=== PATIENT | male | born 1935 | race Caucasian/White ===

== ENCOUNTER → 2016-12-16 | Outpatient (CLI) | payer MEDICARE ==
[2016-12-16 13:44] LABS: ALBUMIN/GLOBULIN RATIO 1.3 (1.0-2.2); BILIRUBIN,TOTAL 0.7 mg/dL (0.2-1.0); BUN - BLOOD UREA NITROGEN 29 mg/dL (6-20); CALCIUM 9.1 mg/dL (8.5-10.3); CARBON DIOXIDE - CO2 27 mmol/L (21-32); CHLORIDE 105 mmol/L (101-111); CHOL/HDL RATIO 2.6 (<5.0); CHOLESTEROL 231 mg/dL; GFR - MDRD 72 (>89); GLUCOSE 96 mg/dL (70-100); HDL CHOLESTEROL 88 mg/dL; LDL/HDL RATIO 1.5 (<3.6); POTASSIUM 4.3 mmol/L (3.5-5.0); SODIUM 140 mmol/L (135-145); TOTAL PROTEIN 6.9 g/dL (6.7-8.2); TRIGLYCERIDES 52 mg/dL; VLDL CHOLESTEROL 10 mg/dL
== END ==
LOC: LAB.R 14:00
PROVIDERS: ATTEND Internal Medicine
DX: Z12.5 Encounter for screening for malignant neoplasm of prostate (principal); E78.5 Hyperlipidemia, unspecified; Z79.899 Other long term (current) drug therapy
CPT/HCPCS: 80053; 80061; 82550; G0103; 84153

== ENCOUNTER 2017-02-17 09:23 | Outpatient (CLI) | payer MEDICARE ==
[2017-02-17 16:14] LABS: CHOL/HDL RATIO 3.4 (<5.0); CHOLESTEROL 279 mg/dL; HDL CHOLESTEROL 81 mg/dL; LDL/HDL RATIO 2.3 (<3.6); TRIGLYCERIDES 70 mg/dL; VLDL CHOLESTEROL 14 mg/dL
[2017-02-17 16:20] LABS: PSA FREE 0.54 ng/mL (0.16-2.81)
[2017-02-17 16:21] LABS: PSA TOTAL 1.58 ng/mL (0.000-2.000)
== END 2017-02-17 09:24 | disposition home or self-care (01) ==
LOC: LAB.R 09:23
PROVIDERS: ATTEND Internal Medicine
DX: R97.20 Elevated prostate specific antigen [PSA] (principal); Z87.898 Personal history of other specified conditions; E78.5 Hyperlipidemia, unspecified
CPT/HCPCS: 80061; 82550; 84154

== ENCOUNTER 2017-04-01 11:23 | Inpatient (IN) | payer MEDICARE ==
--- NOTE | 2017-04-01 11:55 | ED Physician Documentation ---
PD HPI FOCAL NEURO - Stated complaint Stated Complaint: R SIDE NUMBNESS/DIZZY - Chief complaint Chief Complaint: Neuro - History obtained from History obtained from: Patient - History of Present Illness Timing - onset: Last night Timing - details: Still present (worse this morning about 10 am), Waxing and waning Severity of deficit: Moderate (noted numbness feeling right arm and leg, Somewhat on the face as well last evening and earlier this morning. His also thought that he was having trouble with thought process. He had onset of the symptoms yesterday evening and last night. He was not sure if the numbness was still there when he first awoke this morning but noted it particularly around 10 AM. However his said he was having troubles with thought process right when he was awake this morning. There is no weakness noted. He was slightly off balance walking. He denied any headache or head injury.) Weakness: No: Face, Arm, Hand, Leg, Foot, Right, Left, Other Numbness: Face, Arm, Leg, Right Associated symptoms: No: Headache, Nausea / vomiting, Seizure, Syncope, Head injury, Chest pain Contributing factors: negative: Anticoagulated, Atrial fibrillation Baseline status: positive: A&OX3, ambulatory, indep (he was actually out doing yard work yesterday, without injury. He felt that he was well hydrated through the day.) Recently seen: Not recently seen Review of Systems Constitutional: denies: Fever, Chills Eyes: denies: Loss of vision, Decreased vision Ears: denies: Loss of hearing, Tinnitus/ringing Nose: denies: Rhinorrhea / runny nose, Congestion Throat: denies: Sore throat Cardiac: denies: Chest pain / pressure, Palpitations Respiratory: denies: Dyspnea GI: denies: Abdominal Pain, Abdominal Swelling, Nausea, Vomiting, Diarrhea, Bloody / black stool : denies: Dysuria, Frequency Skin: denies: Rash, Lesions Neurologic: reports: Numbness. denies: Generalized weakness, Focal weakness, Headache, Head injury Psychiatric: denies: Depressed, Insomnia Endocrine: denies: Easy bruising / bleeding Immunocompromised: denies: Immunocompromised PD PAST MEDICAL HISTORY - Past Medical History Past Medical History: No Cardiovascular: High cholesterol - Past Surgical History Past Surgical History: Yes Derm: Skin cancer surgery - Present Medications Home Medications: Ambulatory Orders Medication Instructions Recorded Confirmed Aspirin 81 mg PO DAILY 04/01/17 04/01/17 Multivitamin [Theragran] 1 tab PO DAILY 04/01/17 04/01/17 - Allergies Allergies/Adverse Reactions: Allergies Allergy/AdvReac Type Severity Reaction Status Date / Time No Known Drug Allergies Allergy Verified 04/01/17 11:38 - Living Situation Living Situation: reports: With spouse/s.o. Living Arrangement: reports: At home - Social History Does the pt smoke?: No Smoking Status: Never smoker Does the pt drink ETOH?: Yes Does the pt have substance abuse?: No - Family History Family history: reports: Non contributory - Immunizations Immunizations are current?: Yes - POLST Patient has POLST: No PD ED PE NORMAL - Vitals Vital signs reviewed: Yes - General General: Alert and oriented X 3, Well developed/nourished, Other (slightly slow processing answers, but content of answers is good. ) - HEENT HEENT: Atraumatic, PERRL, EOMI, Ears normal, Moist mucous membranes, Pharynx benign - Neck Neck: Supple, no meningeal sign, No adenopathy - Cardiac Cardiac: RRR, No murmur - Respiratory Respiratory: Clear bilaterally - Abdomen Abdomen: Soft, Non tender - Male Male : Deferred - Rectal Rectal: Deferred - Back Back: No CVA TTP - Derm Derm: Normal color, Warm and dry, No rash - Extremities Extremities: No deformity, No tenderness to palpate, Normal ROM s pain, No edema , No calf tenderness / cord - Neuro Neuro: Alert and oriented X 3, pigeon fancier 2-12 intact, No motor deficit, Other (some decreased sensation right arm and leg to touch. He is able to talk coherently and content is correct/appropriate but the process is slow. For the NIHSS, he did well with the visual naming and the picture, but could not read the words nor sentences, tried to spell them and then could not do that either. ) Eye Opening: Spontaneous Motor: Obeys Commands Verbal: Oriented GCS Score: 15 - Psych Psych: Normal mood, Normal affect NIHSS - Level of Consciousness Level of consciousness: (0) Alert, Keenly responsive LOC Questions: (0) Answers both Q's correct LOC Commands: (0) Performs both correctly - Gaze Best Gaze: (0) Normal - Visual Visual: (0) No loss - Facial Palsy Facial Palsy: (0) Normal, symmetrical movement - Motor Arms (both separate) Motor Arm (right): (1) Drift Motor Arm (left): (0) No drift - Motor Legs (both separate) Motor Leg (right): (0) No drift Motor Leg (left): (0) No drift - Limb Ataxia Limb Ataxia: (0) Absent - Sensory Sensory: (1) Zozl-wo-cdhotkfl loss - Best Language Best Language: (1) zekl-rn-[id number] - Dysarthria Dysarthria: (0) Normal - Extinction and Inattention (formally neg Extinction and inattention: (0) No abnormality - Total Score/Results Total Score/Result: 3 Results - Vitals Vitals: Vital Signs - 24 hr 04/01/17 04/01/17 04/01/17 11:34 12:59 14:13 Temperature 36.2 C L 36.7 C Heart Rate 72 66 63 Respiratory 16 15 15 Rate Blood Pressure 157/79 H 141/88 H 138/78 H O2 Saturation 98 98 97 Oxygen O2 Source Room air - Labs Labs: Laboratory Tests 04/01/17 04/01/17 04/01/17 11:36 13:37 13:37 WBC 4.9 RBC 4.44 L Hgb 13.5 L Hct 40.4 L MCV 90.9 MCH 30.4 MCHC 33.4 RDW 13.4 Plt Count 174 MPV 9.3 Neut # 3.4 Lymph # 1.0 L [place] # 0.4 Eos # 0.1 Baso # 0.0 Absolute Nucleated RBC 0.00 Nucleated RBC % 0.0 Sodium 137 Potassium 4.2 Chloride 110 Carbon Dioxide 21 Anion Gap 6.0 BUN 20 Creatinine 0.9 Estimated GFR (MDRD) 81 L Glucose 98 POC Whole Bld Glucose 126 H Calcium 8.8 Total Bilirubin 0.6 AST 25 ALT 21 Alkaline Phosphatase 60 Total Protein 6.0 L Albumin 3.6 Globulin 2.4 Albumin/Globulin Ratio 1.5 Lipase 37 - Rads (name of study) head CT Radiology: Prelim report reviewed (no acute process) head and neck angio Radiology: Prelim report reviewed (posterior occlusion with collateral flow, presume nonacute. No other acute process. ) PD MEDICAL DECISION MAKING - ED course Complexity details: reviewed results, re-evaluated patient (Symptoms are about the same. He was given IV fluids for hydration. He did feel that he hydrated well through the yard work yesterday. There is no injury. His symptoms sound suggestive of a CVA. He was given additional aspirin after his CT did not show any bleeding. The patient to get an angiogram which did not show an obvious new defect. The posterior occlusion with collateral flow sounds to be older and would not correlate with his area of symptoms for language and unilateral numbness. The patient will be admitted to the hospital for further workup and evaluation as well as OT and PT evaluations.), considered differential, d/w patient, d/w organizational research consultant ([facility] - who felt symptoms low enough and timing not clear (may be from last evening) that TPA would not be beneficial enough to balance potential harm. I talked with patient/ about this thought process as well. ), other (Talked with Dr. Tijerina, Hospitalist) Departure - Departure Disposition: [facility] DC/Xfer Clinical Impression: Numbness on right side, Receptive aphasia, Stroke-like symptoms Condition: Stable Record reviewed to determine appropriate education?: Yes
--- NOTE | 2017-04-01 12:21 | CT Preliminary Report ---
Exam: CT HEAD W/O IMPRESSION: No CT evidence for acute intracranial abnormality. [facility] SITE ID: [id number]
--- NOTE | 2017-04-01 12:24 | CT Report ---
EXAM: CT HEAD EXAM DATE: 04/01/2017 11:58 AM. CLINICAL HISTORY: Right side numbness. Also reported right-sided weakness. COMPARISON: None. TECHNIQUE: Multiaxial CT images were obtained from the foramen magnum to the vertex. Reformats: Coron al. IV contrast: None. In accordance with CT protocol optimization, one or more of the following dose reduction techniques w ere utilized for this exam: automated exposure control, adjustment of mA and/or KV based on patient s ize, or use of iterative reconstructive technique. FINDINGS: Mild diffuse atrophy. No evidence for acute hemorrhage or stroke. Nonspecific ventriculomegaly, more likely chronic than acute. No midline shift or abnormal subdural fluid collection. Mild paranasal sinus mucosal thickening. Intact calvarium. IMPRESSION: No CT evidence for acute intracranial abnormality. [facility] Referring Provider Line: [phone] SITE ID: [id number]
[2017-04-01] MEDS ORDERED: SODIUM CHLORIDE 0.9% 1,000 ML IV ONE (12:25)
--- NOTE | 2017-04-01 12:27 | CT Preliminary Report ---
Exam: CT NECK ANGIO Neck CT angiogram IMPRESSION: No acute abnormality or significant stenosis of the cervical vertebral carotid arteries. [facility] SITE ID: [id number]
--- NOTE | 2017-04-01 12:30 | CT Report ---
EXAM: CT ANGIOGRAM NECK EXAM DATE: 04/01/2017 11:49 AM. CLINICAL HISTORY: Report of right-sided weakness and numbness. COMPARISON: None. TECHNIQUE: Routine axial helical imaging was performed from the skull base through the aortic arch. I V Contrast: 100 mL Isovue-300. Reconstructions: Routine multiplanar 3D MIP reconstructions. Evaluatio n of arterial stenosis is based on a NASCET method of measurement. In accordance with CT protocol optimization, one or more of the following dose reduction techniques w ere utilized for this exam: automated exposure control, adjustment of mA and/or KV based on patient s ize, or use of iterative reconstructive technique. FINDINGS: The top of the aortic arch and the origins of the great vessels are patent. No acute abnormality or f ocal flow limiting stenosis of the cervical vertebral or carotid arteries. No significant-appearing a therosclerotic changes at the cervical carotid bifurcations. Incidental left cervical ICA tortuosity. Dqwq-od-unolwjpl chronic-appearing multilevel degenerative cervical spinal spondylosis. No acute apic al pulmonary parenchymal disease. IMPRESSION: No acute abnormality or significant stenosis of the cervical vertebral carotid arteries. [facility] Referring Provider Line: [phone] SITE ID: [id number]
[2017-04-01] MEDS ORDERED: ASPIRIN CHEW 81 MG TABLET PO STA (12:41)
--- NOTE | 2017-04-01 12:48 | CT Preliminary Report ---
Exam: CT HEAD ANGIO Impression: Proximal left GLOVE PARTS INSPECTOR P2 segment occlusion. No other evidence for proximal intracranial large artery flow-limiting stenosis or occlusion. [facility] SITE ID: [id number]
[2017-04-01] MEDS ORDERED: IOPAMIDOL-300 100 ML VIAL IVP ONE (12:55)
[2017-04-01] MEDS ORDERED: IOPAMIDOL-300 100 ML VIAL ONE (12:58)
[2017-04-01] MEDS ORDERED: ASPIRIN CHEW 81 MG TABLET ONE (12:59)
--- NOTE | 2017-04-01 13:27 | CT Report ---
EXAM: CT ANGIOGRAM HEAD. CT SCAN OF THE HEAD WITH CONTRAST. EXAM DATE: 04/01/2017 12:13 PM CLINICAL HISTORY: Right side weakness and numbness. COMPARISON: No prior CTA. TECHNIQUE: 1. Using a multidetector scanner, axial images were acquired from the foramen magnum to the skull santino amilcar prior to and following contrast administration. 2. Using a multidetector scanner, high-resolution axial images were acquired from the skull base thro ugh vertex following rapid infusion of intravenous contrast. Reformats: Multiplanar MIP reformats wer e reconstructed. Nascet criteria used for stenosis measurement. IV Contrast: 100 cc Isovue-300. In accordance with CT protocol optimization, one or more of the following dose reduction techniques w ere utilized for this exam: automated exposure control, adjustment of mA and/or KV based on patient s ize, or use of iterative reconstructive technique. FINDINGS: No abnormal brain enhancement. No evidence for intracranial enhancing space-occupying mass. Focal chronic atherosclerotic calcifications of the proximal right intradural vertebral artery. No as sociated flow limiting arterial luminal stenosis. Mild atherosclerotic calcifications of the cavernous and paraclinoid segments of both internal caroti d arteries. Abrupt cut off of the proximal left INDUSTRIAL ENGINEERING ANALYST P2 segment. Occlusion is age indeterminate. Correlate clinica lly with signs and/or symptoms of left INDUSTRIAL ENGINEERING ANALYST vascular insufficiency. Note that contrast opacified more peripheral branch arteries are contrast opacified in the more distal left INDUSTRIAL ENGINEERING ANALYST territory including the inferior temporal lobe and medial left occipital lobe suggesting some degree of collateral flow. Minimal to mild segmental stenosis of the proximal right INDUSTRIAL ENGINEERING ANALYST, this does not appear flow-limiting. No proximal flow limiting stenosis or occlusion of the central segments of the anterior or middle cer ebral arteries. No as[place] of [place] aneurysm. Contrast opacification of the major dural venous sinuses is present as expected. IMPRESSION: Proximal left INDUSTRIAL ENGINEERING ANALYST P2 segment occlusion. No other evidence for proximal intracranial large artery flow-limiting stenosis or occlusion. Findings discussed by telephone with Dr. Mcneill at 12:45 PM 04/01/2017. [facility] Referring Provider Line: [phone] SITE ID: [id number]
[2017-04-01 13:58] LABS: BASOPHILS % (AUTO) 0.9 %; EOSINOPHILS # (AUTO) 0.1 10^3/uL (0.0-0.7); HCT - HEMATOCRIT 40.4 % (42.0-52.0); HGB - HEMOGLOBIN 13.5 g/dL (14.0-18.0); LYMPHOCYTES % (AUTO) 20.5 %; MEAN CORPUSCULAR HEMOGLOBIN 30.4 pg (27.0-31.0); MEAN CORPUSCULAR HGB CONC 33.4 g/dL (32.0-36.0); MEAN CORPUSCULAR VOLUME 90.9 fL (80.0-94.0); MEAN PLATELET VOLUME 9.3 fL (7.4-11.4); MONOCYTES # (AUTO) 0.4 10^3/uL (0.0-1.0); MONOCYTES % (AUTO) 7.4 %; NEUTROPHILS # (AUTO) 3.4 10^3/uL (1.5-6.6); NEUTROPHILS % (AUTO) 69.2 %; RED BLOOD COUNT 4.44 10^6/uL (4.70-6.10); RED CELL DISTRIBUTION WIDTH 13.4 % (12.0-15.0); UNCORRECTED WHITE BLOOD COUNT 4.9 x10^3/uL; WHITE BLOOD COUNT 4.9 x10^3/uL (4.8-10.8)
[2017-04-01 14:04] LABS: ALBUMIN/GLOBULIN RATIO 1.5 (1.0-2.2); BILIRUBIN,TOTAL 0.6 mg/dL (0.2-1.0); CALCIUM 8.8 mg/dL (8.5-10.3); CREATININE 0.9 mg/dL (0.6-1.2); POTASSIUM 4.2 mmol/L (3.5-5.0)
[2017-04-01] MEDS ORDERED: ONDANSETRON 4 MG/2 ML VIAL IVP PRN (14:32)
[2017-04-01] MEDS ORDERED: SODIUM CHLORIDE FLUSH 0.9% 10 ML SYRINGE IVP PRN (14:32)
[2017-04-01] MEDS ORDERED: ACETAMINOPHEN 325 MG TABLET PO PRN (14:32)
[2017-04-01 15:42] LABS: BILIRUBIN,URINE NEGATIVE (NEGATIVE); PH,URINE 7.5 PH (5.0-7.5)
[2017-04-01 15:44] LABS: UA CHARGE (STRIP ONLY) YES; UR CULTURE IF IND NOT INDICATED
--- NOTE | 2017-04-01 16:34 | MRI Preliminary Report ---
Exam: MRI BRAIN W/O Impressions: 1. Subacute patchy left SENIOR QC TECHNICIAN territory ischemic stroke. No hemorrhage or mass effect. 2. Moderate generalized cortical atrophy with marked compensatory ventricular enlargement. Moderate m idbrain atrophy. No significant white matter disease present. Critical result: Findings discussed immediately with nurse practitioner Capone by phone on 2016 at 1632 hrs. [facility] SITE ID: [id number]
--- NOTE | 2017-04-01 16:37 | MRI Report ---
EXAM: MRI BRAIN WITHOUT CONTRAST EXAM DATE: 04/01/2017 04:07 PM. CLINICAL HISTORY: Right-sided weakness. Evaluate for stroke. COMPARISON: Prior CT head, CT angiogram head and neck performed earlier today at 1149 hrs.. TECHNIQUE: Multiplanar, multisequence T1-weighted and fluid-sensitive MR sequences of the brain were performed. Sequences optimized for routine evaluation. Other: None. IV Contrast: None. Findings: Relevant images are indicated (image number, series number). Patchy, incomplete diffusion restriction present left JUVENILE JUSTICE OFFICER territory, corresponding low signal ADC. Th is includes left hippocampus, left occipital pole. There is corresponding increased signal present se en on axial FLAIR. There is no hemorrhage or mass effect. Remaining brain demonstrates no acute or subacute ischemic change. Basal cisterns, bilateral IACs, bilateral Meckel's caves are clear. Orbital contents negative. There are normal expected vascular flow voids of the major arteries and veins. As seen earlier, again seen prominent enlargement of the lateral ventricles, atria. Prominent generalized atrophy of the brain pr esent. No significant superimposed white matter disease. Empty sella. Punctate old ischemic disease present posterior central blaine. Moderate midbrain atrophy. Craniocervical junction, limited evaluation upper cervical cord negative. Impressions: 1. Subacute patchy left JUVENILE JUSTICE OFFICER territory ischemic stroke. No hemorrhage or mass effect. 2. Moderate generalized cortical atrophy with marked compensatory ventricular enlargement. Moderate m idbrain atrophy. No significant white matter disease present. Critical result: Findings discussed immediately with nurse practitioner Capone by phone on 2016 at 1632 hrs. [facility] Referring Provider Line: [phone] SITE ID: [id number]
--- NOTE | 2017-04-01 16:43 | HISTORY & PHYSICAL EXAMINATION ---
Chief Complaint - Chief Complaint Chief Complaint: slow speech and numbness at right side of body History of Present Illness - Admitted From Admitted From:: ER - History Obtained From History obtained from: pt - History of Present Illness HPI Comment/Other: This is a pleasure 81-year-old male with HLP past medical history, otherwise health, who present ER for evaluation of focal neurological deficit. Pt report on last night about 9pm he began to feel numbness on right side upper and lower extremities, and right face. Then pt though it would go away, and went to sleep. In the today morning, pt still felt right side numbness, and with slower speech than usually and mild gait imbalance. Pt's felt it is unusual then bring pt to ER. Pt still present all these symptoms in the ER. Pt denies headache, any injury, chest pain, SOB, fever, chill, abdominal pain, nausea, vomiting, vision changing. CT of head reveals unremarkable. Lab test is unremarkable as well. pt was admitted for CVA evaluation. History - Past Medical History Cardiovascular: reports: High cholesterol Respiratory: reports: None Neuro: reports: None Endocrine/Autoimmune: reports: None GI: reports: None : reports: None HEENT: reports: None Psych: reports: None Musculoskeletal: reports: None Derm: reports: Other MRSA Hx?: No - Past Surgical History Derm: reports: Skin cancer surgery - Family & Social History Living arrangement: At home Living Situation: With spouse/s.o. - Substance History Use: Uses substance without health or social issues: NONE Abuse: Recurrent use of substance despite neg consequences: NONE - POLST Patient has POLST: No POLST Status: Full Code Meds/Allgy - Home Medications Home Medications: Ambulatory Orders Medication Instructions Recorded Confirmed Aspirin 81 mg PO DAILY 04/01/17 04/01/17 Cholecalciferol (Vitamin D3) 1,000 units PO DAILY 04/01/17 04/01/17 [Vitamin D3] Multivitamin [Theragran] 1 tab PO DAILY 04/01/17 04/01/17 Rosuvastatin Calcium [Crestor] 10 mg PO DAILY 04/01/17 04/01/17 - Allergies Allergies/Adverse Reactions: Allergies Allergy/AdvReac Type Severity Reaction Status Date / Time No Known Drug Allergies Allergy Verified 04/01/17 11:38 Review of Systems - Constitutional Constitutional: denies: Fatigue, Fever, Chills, Malaise - Eyes Eyes: denies: Pain, Irritation, Amaurosis, Blurred vision, Spots in vision, Field loss, Vision loss, Dipolpia - Ears, Nose & Throat Ears, Nose & Throat: denies: Ear pain, Hearing loss, Hearing aids, Tinnitus, Vertigo, Nasal pain, Nasal discharge, Nosebleeds, Nasal obstruction, Postnasal drainage, Dentures, Sore throat, Hoarseness, Bleeding gums - Cardiovascular Cariovascular: denies: Irregular heart rate, Palpitations, Chest pain, Edema, Lightheadedness, Syncope, Exertional dyspnea, Decr. exercise tolerance - Respiratory Respiratory: denies: Cough, Sputum production, Wheezing, Snoring, Hemoptysis, Orthopnea, SOB at rest, SOB with exertion - Gastrointestinal Gastrointestinal: denies: Abdominal pain, Abdominal distention, Constipation, Diarrhea, Change in bowel habits, Rectal bleeding, Black stools, Bloody stools, Nausea, Vomiting, Bile emesis, Alvin blood emesis, Coffee grounds emesis, Reflux /heartburn - Genitourinary Genitourinary: denies: Dysuria, Frequency, Urgency, Hematuria, Incontinence, Flank pain, Nocturia, Urethral discharge - Musculoskeletal Musculoskeletal: denies: Muscle pain, Back pain, Muscle aches, Stiffness, Limited range of motion, Muscle weakness, Gout, Joint pain - Integumentary Integumentary: denies: Rash, Pruritis, Lesions, Dryness, Acne, Pigment changes - Neurological Neurological: reports: Numbness, Abnormal gait, Slurred speech. denies: General weakness, Focal weakness, Headache, Dizziness, Memory problems, Pre- existing deficit, Seizures, Incoordination - Psychiatric Psychiatric: denies: Depression, Anxiety, Suicidal, Delusions, Hallucinations, Homicidal - Endocrine Endocrine: denies: Polyuria, Polydypsia, Polyphagia, Intolerance to cold, Intolerance to heat - Hematologic/Lymphatic Hematologic/Lymphatic: denies: Anemia, Bruising, Petechiae, Blood clots, Lymphadenopathy, Bleeding tendencies, Recurrent infections Exam - Vital Signs Reviewed Vital Signs: Yes Vital Signs: Vital Signs x48h Temp Pulse Resp BP BP Pulse Ox 04/01/17 16:21 37.0 C 16 156/81 H 98 04/01/17 15:20 78 14 139/76 H 96 - Physical Exam General Appearance: positive: No acute distress, Alert. negative: Lethargic Eyes Bilateral: positive: Normal inspection, PERRL, No lid inflammation, Conjunctivae nml ENT: positive: ENT inspection nml, Pharynx nml, No signs of dehydration. negative: Purulent nasal drainage, Pharyngeal erythema, Oral lesions Neck: positive: Nml inspection, Thyroid nml, No JVD, Trachea midline. negative : Thyromegaly, Lymphadenopathy (R), Lymphadenopathy (L), Stiff neck, Carotid bruit, Swelling/bruising, Tracheal deviation Respiratory: positive: Chest non-tender, No respiratory distress, Breath sounds nml. negative: Wheezes, Rales, Rhonchi Cardiovascular: positive: Regular rate & rhythm, No murmur, No gallop. negative : Irregularly irregular, Extrasystoles, Tachycardia, Bradycardia, Systolic murmur, Diastolic murmur Peripheral Pulses: positive: 2+ Abdomen: positive: Non-tender, No organomegaly, Nml bowel sounds, No distention. negative: Tenderness, Guarding, Rebound Back: positive: Nml inspection. negative: CVA tenderness (R), CVA tenderness (L ) Skin: positive: Color nml, No rash, Warm, Dry. negative: Cyanosis, Diaphoresis , Pallor, Skin rash, Decubitus Extremities: positive: Non-tender, Full ROM, Nml appearance. negative: Pedal edema, Joint swelling, Skylar's sign/cords Neurologic/Psychiatric: positive: Oriented x3, Motor nml, Mood/affect nml, Slurred/abnml speech. negative: Sensation nml, Weakness, Sensory loss, Facial droop Conclusion/Plan - Problem List (1) Numbness on right side Conclusion/Plan: pt's symptoms suggest pt may have CVA at left side MRI MRA of brain, and neck ECHO lipid panel PT/OT/ST [place] 325mg daily Lipitor 40 mg daily NPO until evaluated allow SBP until 190 (2) Hyperlipidemia Conclusion/Plan: will check Lipid panel Lipitor 40 mg daily (3) DVT prophylaxis Conclusion/Plan: SCD and Lovenox (4) Full code status Conclusion/Plan: pt request full code status - Lab Results Fish Bones: 04/01/17 13:37 04/01/17 13:37 Issues/Core Measures - Anticipated LOS Anticipated Stay Length: Less than 2 midnights (less than two midnights expected )
[2017-04-01] MEDS: SODIUM CHLORIDE FLUSH 0.9% 10 ML SYRINGE IVP SCH (16:47)
[2017-04-01] MEDS: SODIUM CHLORIDE 0.9% 1,000 ML IV SCH (16:47)
[2017-04-02] MEDS: SODIUM CHLORIDE 0.9% 1,000 ML IV SCH ×2 (04:08→18:28)
[2017-04-02] MEDS: SODIUM CHLORIDE FLUSH 0.9% 10 ML SYRINGE IVP SCH ×3 (05:57→22:18)
[2017-04-02 06:04] LABS: BASOPHILS % (AUTO) 0.5 %; EOSINOPHILS # (AUTO) 0.3 10^3/uL (0.0-0.7); HCT - HEMATOCRIT 40.3 % (42.0-52.0); HGB - HEMOGLOBIN 13.1 g/dL (14.0-18.0); LYMPHOCYTES # (AUTO) 1.7 10^3/uL (1.5-3.5); LYMPHOCYTES % (AUTO) 26.5 %; MEAN CORPUSCULAR HGB CONC 32.6 g/dL (32.0-36.0); MEAN CORPUSCULAR VOLUME 92.1 fL (80.0-94.0); MEAN PLATELET VOLUME 9.3 fL (7.4-11.4); MONOCYTES # (AUTO) 0.5 10^3/uL (0.0-1.0); MONOCYTES % (AUTO) 7.3 %; NEUTROPHILS # (AUTO) 3.9 10^3/uL (1.5-6.6); NEUTROPHILS % (AUTO) 61.7 %; NUCLEATED RED BLOOD CELLS AUTO 0.1 /100WBC; RED BLOOD COUNT 4.38 10^6/uL (4.70-6.10); RED CELL DISTRIBUTION WIDTH 13.4 % (12.0-15.0); UNCORRECTED WHITE BLOOD COUNT 6.4 x10^3/uL; WHITE BLOOD COUNT 6.4 x10^3/uL (4.8-10.8)
[2017-04-02 06:13] LABS: ALBUMIN/GLOBULIN RATIO 1.5 (1.0-2.2); BILIRUBIN,TOTAL 0.9 mg/dL (0.2-1.0); CALCIUM 8.5 mg/dL (8.5-10.3); CREATININE 0.9 mg/dL (0.6-1.2); MAGNESIUM 1.8 mg/dL (1.7-2.8); POTASSIUM 3.7 mmol/L (3.5-5.0); TOTAL PROTEIN 5.5 g/dL (6.7-8.2)
[2017-04-02 06:19] LABS: CHOL/HDL RATIO 2.5 (<5.0); CHOLESTEROL 158 mg/dL; HDL CHOLESTEROL 62 mg/dL; LDL/HDL RATIO 1.4 (<3.6); TRIGLYCERIDES 58 mg/dL; VLDL CHOLESTEROL 12 mg/dL
[2017-04-02] MEDS: ASPIRIN 325 MG TABLET PO SCH (08:13)
[2017-04-02] MEDS: FAMOTIDINE 20 MG TABLET PO SCH (08:13)
[2017-04-02] MEDS: POLYETHYLENE GLYCOL 3350 17 GM PACKET PO SCH (08:14)
[2017-04-02] MEDS: ENOXAPARIN 40 MG/0.4 ML SYRINGE SUBQ SCH (08:14)
[2017-04-02] MEDS ORDERED: ATORVASTATIN 40 MG TABLET PO SCH (09:00)
[2017-04-02] MEDS ORDERED: NON FORMULARY MED (Rosuvastatin Calcium [Crestor] 10 MG) PO SCH (09:15)
[2017-04-02] MEDS: MULTIVITAMIN TABLET PO SCH (10:35)
[2017-04-02] MEDS: CHOLECALCIFEROL 1,000 UNIT TABLET PO SCH (10:35)
--- NOTE | 2017-04-02 16:22 | Discharge Plan ---
Discharge Plan Disposition: [facility] DC/Xfer Condition: Fair No Smoking: If you smoke, Please STOP! Call for help. Follow-up with: Emery Israel MD [Primary Care Provider] -
--- NOTE | 2017-04-02 17:01 | Discharge Plan ---
"Discharge Plan for SNF / JAIL - DC Plan and Transition Orders Disposition: 03 SNF DC/Xfer Condition: Stable SNF Transition Orders: Ad[facility] to: [facility] under the care of [Doctor Name] Discharge Diagnosis: [CVA, hyperlipidemia] Medicare Certification: I certify that [facility] care care is medically necessary on a continuing basis for any of the conditions for which she/he is receiving care during hospitalization. Notify PCP of admission and forward orders to primary provider for signature. Weight on admission and [72.5 kg]. Call PCP immediately if weight increases by [4] pounds or if patient develops dyspnea, chest pain/tightness or edema. House Bowel Program: [Yes] If no BM after 2 days, nurse may give M.O.M. 30ml PO PRN and /or ducolax Supp 1 MT and /or SHAUN 250mg P.O., and/or senna 1-2 tabs PO. On day 3 nurse may give repeat above order until residents constipation is resolved. Immunizations: Annual Influenza Vaccine: [Yes]. (between Jan 15 and August 14.) Unless allergy or already given Two-Step PPD: [Yes] per [facility] [id number] or appropriate documentation of approved exceptions Treatments & Other Orders: [may follow up PCP and neurologist in one week] Oxygen Orders: [n] Lab Tests or X-Rays Orders: [] Orthopedic Orders: [Remove Sutures/[place] and Comment]. Medications: PLEASE REFER TO THE DISCHARGE MEDICATION LIST. Insulin Orders? [No] Diagnosis: Diabetes Initiate hypo and hyperglycemia protocols for BG <70 and BG >375. May check BG prn for signs/symptoms of dysglycemia. Frequency of BG checks: [AC/Meal/HS] Basal Insulin: [] Lantus 100 units / ml inject subq as follows: [] [] Other: [] Correction Insulin: - Select the type of insulin below [Choose: Novolog/Humalog]100 units /ml insulin inject subq per orders indicate below [] LOW DOSE [] MODERATE DOSE [] MODERATE/HIGH DOSE [] HIGH DOSE GB UNITS GB UNITS GB UNITS GB UNITS 61-140 0 UNITS 61-140 0 UNITS 61-140 0 UNITS 61-140 0 UNITS 141-175 1 UNITS 141-175 1 UNITS 141-175 2 UNITS 141-175 3 UNITS 176-225 2 UNITS 176-225 3 UNITS 176-225 4 UNITS 176-225 5 UNITS 226-275 3 UNITS 226-275 5 UNITS 226-275 6 UNITS 226-275 7 UNITS 276-325 4 UNITS 276-325 7 UNITS 276-325 8 UNITS 276-325 9 UNITS 326-375 5 UNITS 326-375 9 UNITS 326-375 10 UNITS 326-375 11 UNITS >375 CONTACT MD >375 CONTACT MD >375 CONTACT MD >375 CONTACT MD Custom Dosing: [Choose: None/Novolog/Humalog] 100 units/ml Insulin inject subq as follows: GB Units 61-140 [] Units 141-175 [] Units 176-225 [] Units 226-275 [] Units 276-325 []Units 326-375 [] Units >375 Contact MD Allergies and Adverse Reactions: Allergies Allergy/AdvReac Type Severity Reaction Status Date / Time No Known Drug Allergies Allergy Verified 04/01/17 11:38 - Diet Type: Geriatric Texture: Regular Liquids: Thin May have monthly special meal: Yes - Therapies | Activity Therapy: Evaluation | Treat if indicated: Speech, PT, OT, Swallowing / ST Rehabilitation Potential: Maximize functional status Activity: Activity as Tolerated Weight Bearing: Full Weight Assistance Devices: Walker Additional Instructions: May follow up PCP and neurologist in one week"
--- NOTE | 2017-04-02 18:30 | PROVIDER PROGRESS NOTE ---
Subjective - Prog Note Date Prog Note Date: 04/02/17 - Subjective Pt reports feeling: Improved Subjective: pt state he feel much better. no chest pain, headache, abdominal pain. Current Medications - Current Medications Current Medications: Active Medications Acetaminophen (Tylenol) 650 mg PO Q4HR PRN PRN Reason: Pain 1 to 4 Aspirin (Vasquez) 325 mg PO DAILY [facility] Last Admin: 04/02/17 08:13 Dose: 325 mg Cholecalciferol (Vitamin D3) 1,000 unit PO DAILY [facility] Last Admin: 04/02/17 10:35 Dose: 1,000 unit Enoxaparin Sodium (Lovenox) 40 mg SUBQ DAILY [facility] Last Admin: 04/02/17 08:14 Dose: 40 mg Famotidine (Pepcid) 20 mg PO DAILY [facility] Last Admin: 04/02/17 08:13 Dose: 20 mg Sodium Chloride (Normal Saline 0.9%) 1,000 mls @ 85 mls/hr IV .[id number] [facility] Last Infusion: 04/02/17 16:00 Dose: Infused Multivitamins (Theragran) 1 tab PO DAILY [facility] Last Admin: 04/02/17 10:35 Dose: 1 tab Ondansetron HCl (Zofran Inj) 4 mg IVP Q6HR PRN PRN Reason: Nausea / Vomiting Patient Own Medication (Patient Own Medication) 1 each PO 2100 [facility] Polyethylene Glycol (Miralax) 17 gm PO DAILY [facility] Last Admin: 04/02/17 08:14 Dose: Not Given Sodium Chloride (Normal Saline Flush 0.9%) 10 ml IVP PRN PRN PRN Reason: NEEDED PER PROVIDER ORDERS Sodium Chloride (Normal Saline Flush 0.9%) 10 ml IVP Q8HR [facility] Last Admin: 04/02/17 13:51 Dose: Not Given Cholecalciferol (Vitamin D3) [Vitamin D3] 1,000 units PO DAILY 04/01/17 Multivitamin [Theragran] 1 tab PO DAILY 04/01/17 Simvastatin 20 mg PO 2100 04/02/17 Objective - Vital Signs/Intake & Output Reviewed Vital Signs: Yes Vital Signs: Vital Signs x48h Temp Pulse Pulse Pulse Resp BP BP 04/02/17 15:59 37 C 77 18 142/90 H 04/02/17 12:51 36.9 C 80 16 04/02/17 10:52 68 69 143/77 H BP BP Pulse Ox 04/02/17 15:59 98 04/02/17 12:51 137/69 H 97 04/02/17 10:52 138/80 H Intake & Output: Intake & Output 03/30/17 03/31/17 04/01/17 04/02/17 23:59 23:59 23:59 23:59 Intake Total 410 2584.75 Output Total 875 Balance 410 1709.75 - Objective General Appearance: positive: No acute distress, Alert. negative: Lethargic Eyes Bilateral: positive: Normal inspection, PERRL, EOMI, No lid inflammation, Conjunctivae nml ENT: positive: ENT inspection nml, Pharynx nml, No signs of dehydration. negative: Purulent nasal drainage, Pharyngeal erythema, Oral lesions, Dry mucous membranes Neck: positive: Nml inspection, Thyroid nml, No JVD, Trachea midline. negative : Thyromegaly, Lymphadenopathy (R), Lymphadenopathy (L), Stiff neck, Carotid bruit, Swelling/bruising, Tracheal deviation Respiratory: positive: Chest non-tender, No respiratory distress, Breath sounds nml. negative: Wheezes, Rales, Rhonchi Cardiovascular: positive: Regular rate & rhythm, No murmur, No gallop. negative : Irregularly irregular, Extrasystoles, Tachycardia, Bradycardia, Systolic murmur, Diastolic murmur Peripheral Pulses: 2+ Radial (R), 2+ Radial (L), 2+ Dorsalis pedis (R), 2+ Dorsalis pedis (L) Abdomen: positive: Non-tender, Nml bowel sounds, No distention. negative: Tenderness, Guarding, Rebound Back: positive: Nml inspection. negative: CVA tenderness (R), CVA tenderness (L ) Skin: positive: Color nml, No rash, Warm, Dry. negative: Cyanosis, Diaphoresis , Pallor, Skin rash Extremities: positive: Non-tender, Full ROM, Nml appearance. negative: Calf tenderness, Joint swelling, Skylar's sign/cords Neurologic/Psychiatric: positive: Oriented x3, Sensation nml, Mood/affect nml, Weakness. negative: Sensory loss, Facial droop, Slurred/abnml speech, Depressed mood/affect - Lab Results Fish Bones: 04/02/17 05:19 04/02/17 05:19 Other Labs: Lab Results x24hrs 04/02/17 04/02/17 04/02/17 Range/Units 05:19 05:19 05:19 WBC 6.4 (4.8-10.8) x10^3/uL RBC 4.38 L (4.70-6.10) 10^6/uL Hgb 13.1 L (14.0-18.0) g/dL Hct 40.3 L (42.0-52.0) % MCV 92.1 (80.0-94.0) fL MCH 30.0 (27.0-31.0) pg MCHC 32.6 (32.0-36.0) g/dL RDW 13.4 (12.0-15.0) % Plt Count 186 (130-450) 10^3/uL MPV 9.3 (7.4-11.4) fL Neut # 3.9 (1.5-6.6) 10^3/uL Lymph # 1.7 (1.5-3.5) 10^3/uL [place] # 0.5 (0.0-1.0) 10^3/uL Eos # 0.3 (0.0-0.7) 10^3/uL Baso # 0.0 (0.0-0.1) 10^3/uL Absolute Nucleated RBC 0.00 x10^3/uL Nucleated RBC % 0.1 /100WBC Sodium 137 (135-145) mmol/L Potassium 3.7 (3.5-5.0) mmol/L Chloride 106 (101-111) mmol/L Carbon Dioxide 25 (21-32) mmol/L Anion Gap 6.0 (6-13) BUN 13 (6-20) mg/dL Creatinine 0.9 (0.6-1.2) mg/dL Estimated GFR (MDRD) 81 L (>89) Glucose 93 (70-100) mg/dL Calcium 8.5 (8.5-10.3) mg/dL Magnesium 1.8 (1.7-2.8) mg/dL Total Bilirubin 0.9 (0.2-1.0) mg/dL AST 20 (10-42) IU/L ALT 19 (10-60) IU/L Alkaline Phosphatase 49 (42-121) IU/L Total Protein 5.5 L (6.7-8.2) g/dL Albumin 3.3 (3.2-5.5) g/dL Globulin 2.2 (2.1-4.2) g/dL Albumin/Globulin Ratio 1.5 (1.0-2.2) Triglycerides 58 ( - 149) mg/dL Cholesterol 158 ( - 199) mg/dL LDL Cholesterol, Calc 84 ( - 129) mg/dL VLDL Cholesterol 12 mg/dL HDL Cholesterol 62 (60 - ) mg/dL LDL/HDL Ratio 1.4 (<3.6) Cholesterol/HDL Ratio 2.5 (<5.0) Assessment/Plan - Problem List (1) Numbness on right side Impression: (1) Numbness on right side Conclusion/Plan: 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 pt state he can not tolerate Lipitor but he has his own home statin, pt will bring his own Statin pt's symptoms suggest pt may have CVA at left side MRI MRA of brain, and neck ECHO lipid panel PT/OT/ST [place] 325mg daily Lipitor 40 mg daily NPO until evaluated allow SBP until 190 (2) Hyperlipidemia Conclusion/Plan: use pt's home Crestor will check Lipid panel Lipitor 40 mg daily
[2017-04-03] MEDS: SODIUM CHLORIDE FLUSH 0.9% 10 ML SYRINGE IVP SCH ×3 (05:45→20:43)
[2017-04-03] MEDS: SODIUM CHLORIDE 0.9% 1,000 ML IV SCH ×2 (06:04→18:01)
[2017-04-03 06:17] LABS: BASOPHILS % (AUTO) 0.7 %; EOSINOPHILS # (AUTO) 0.2 10^3/uL (0.0-0.7); EOSINOPHILS % (AUTO) 4.1 %; HCT - HEMATOCRIT 37.9 % (42.0-52.0); HGB - HEMOGLOBIN 12.6 g/dL (14.0-18.0); LYMPHOCYTES # (AUTO) 1.6 10^3/uL (1.5-3.5); LYMPHOCYTES % (AUTO) 28.7 %; MEAN CORPUSCULAR HEMOGLOBIN 30.5 pg (27.0-31.0); MEAN CORPUSCULAR HGB CONC 33.2 g/dL (32.0-36.0); MEAN CORPUSCULAR VOLUME 91.9 fL (80.0-94.0); MEAN PLATELET VOLUME 9.6 fL (7.4-11.4); MONOCYTES # (AUTO) 0.4 10^3/uL (0.0-1.0); NEUTROPHILS # (AUTO) 3.2 10^3/uL (1.5-6.6); NEUTROPHILS % (AUTO) 58.5 %; RED BLOOD COUNT 4.12 10^6/uL (4.70-6.10); RED CELL DISTRIBUTION WIDTH 13.7 % (12.0-15.0); UNCORRECTED WHITE BLOOD COUNT 5.4 x10^3/uL; WHITE BLOOD COUNT 5.4 x10^3/uL (4.8-10.8)
[2017-04-03 06:36] LABS: ALBUMIN/GLOBULIN RATIO 1.5 (1.0-2.2); BILIRUBIN,TOTAL 0.5 mg/dL (0.2-1.0); CALCIUM 8.4 mg/dL (8.5-10.3); CREATININE 0.9 mg/dL (0.6-1.2); POTASSIUM 3.5 mmol/L (3.5-5.0); TOTAL PROTEIN 5.3 g/dL (6.7-8.2)
[2017-04-03] MEDS: POLYETHYLENE GLYCOL 3350 17 GM PACKET PO SCH (08:28)
[2017-04-03] MEDS: MULTIVITAMIN TABLET PO SCH (09:21)
[2017-04-03] MEDS: ASPIRIN 325 MG TABLET PO SCH (09:21)
[2017-04-03] MEDS: FAMOTIDINE 20 MG TABLET PO SCH (09:21)
[2017-04-03] MEDS: CHOLECALCIFEROL 1,000 UNIT TABLET PO SCH (09:21)
[2017-04-03] MEDS: ENOXAPARIN 40 MG/0.4 ML SYRINGE SUBQ SCH (09:21)
--- NOTE | 2017-04-03 14:35 | PROVIDER PROGRESS NOTE ---
Subjective - Prog Note Date Prog Note Date: 04/03/17 - Subjective Pt reports feeling: Improved Subjective: pt state he has great improvement for gait balance. I go with pt. Pt did have great improvement for walk independently. wait for pt's insurance improve, then pt can be transferred [facility] Current Medications - Current Medications Current Medications: Active Medications Acetaminophen (Tylenol) 650 mg PO Q4HR PRN PRN Reason: Pain 1 to 4 Aspirin (Vasquez) 325 mg PO DAILY [facility] Last Admin: 04/03/17 09:21 Dose: 325 mg Cholecalciferol (Vitamin D3) 1,000 unit PO DAILY [facility] Last Admin: 04/03/17 09:21 Dose: 1,000 unit Enoxaparin Sodium (Lovenox) 40 mg SUBQ DAILY [facility] Last Admin: 04/03/17 09:21 Dose: 40 mg Famotidine (Pepcid) 20 mg PO DAILY [facility] Last Admin: 04/03/17 09:21 Dose: 20 mg Sodium Chloride (Normal Saline 0.9%) 1,000 mls @ 85 mls/hr IV .[id number] [facility] Last Admin: 04/03/17 06:04 Dose: 85 mls/hr Multivitamins (Theragran) 1 tab PO DAILY [facility] Last Admin: 04/03/17 09:21 Dose: 1 tab Ondansetron HCl (Zofran Inj) 4 mg IVP Q6HR PRN PRN Reason: Nausea / Vomiting Patient Own Medication (Patient Own Medication) 1 each PO 2100 [facility] Polyethylene Glycol (Miralax) 17 gm PO DAILY [facility] Last Admin: 04/03/17 08:28 Dose: Not Given Sodium Chloride (Normal Saline Flush 0.9%) 10 ml IVP PRN PRN PRN Reason: NEEDED PER PROVIDER ORDERS Sodium Chloride (Normal Saline Flush 0.9%) 10 ml IVP Q8HR [facility] Last Admin: 04/03/17 13:37 Dose: Not Given Cholecalciferol (Vitamin D3) [Vitamin D3] 1,000 units PO DAILY 04/01/17 Multivitamin [Theragran] 1 tab PO DAILY 04/01/17 Simvastatin 20 mg PO 2100 04/02/17 Objective - Vital Signs/Intake & Output Vital Signs: Vital Signs x48h Temp Pulse Pulse Resp BP BP Pulse Ox 04/03/17 13:00 36.8 C 82 19 146/76 H 99 04/03/17 10:30 93 134/77 H - Objective General Appearance: positive: No acute distress, Alert. negative: Lethargic Eyes Bilateral: positive: Normal inspection, PERRL, No lid inflammation, Conjunctivae nml ENT: positive: ENT inspection nml, Pharynx nml, No signs of dehydration. negative: Purulent nasal drainage, Pharyngeal erythema, Oral lesions, Dry mucous membranes Neck: positive: Nml inspection, Thyroid nml, No JVD, Trachea midline. negative : Thyromegaly, Lymphadenopathy (R), Lymphadenopathy (L), Stiff neck, Carotid bruit, Swelling/bruising, Tracheal deviation Respiratory: positive: Chest non-tender, No respiratory distress, Breath sounds nml. negative: Wheezes, Rales, Rhonchi Cardiovascular: positive: Regular rate & rhythm, No murmur, No gallop. negative : Irregularly irregular, Extrasystoles, Tachycardia, Bradycardia, Systolic murmur, Diastolic murmur Peripheral Pulses: 2+ Radial (R), 2+ Radial (L), 2+ Dorsalis pedis (R), 2+ Dorsalis pedis (L) Abdomen: positive: Non-tender, No organomegaly, Nml bowel sounds, No distention. negative: Tenderness, Guarding, Rebound Back: positive: Nml inspection. negative: CVA tenderness (R), CVA tenderness (L ) Skin: positive: Color nml, No rash, Warm, Dry. negative: Cyanosis, Diaphoresis , Pallor Extremities: positive: Non-tender, Full ROM, Nml appearance. negative: Calf tenderness, Joint swelling, Skylar's sign/cords Neurologic/Psychiatric: positive: Oriented x3, Sensation nml, Mood/affect nml, Other (pt's gait imbalance isuue is great improved). 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 pt state he can not tolerate Lipitor but he has his own home statin, pt will bring his own Statin pt's symptoms suggest pt may have CVA at left side MRI MRA of brain, and neck ECHO lipid panel PT/OT/ST [place] 325mg daily Lipitor 40 mg daily NPO until evaluated allow SBP until 190 (2) Hyperlipidemia Conclusion/Plan: pt state he can not tolerate Lipid before, and prefer home Crestor use pt's home Crestor will check Lipid panel Lipitor 40 mg daily after pt's insurance improved, [facility]
[2017-04-03] MEDS: SIMVASTATIN 20MG TAB PO SCH (20:42)
[2017-04-04] MEDS: SODIUM CHLORIDE FLUSH 0.9% 10 ML SYRINGE IVP SCH ×3 (05:08→20:26)
[2017-04-04] MEDS: SODIUM CHLORIDE 0.9% 1,000 ML IV SCH (05:50)
[2017-04-04 06:12] LABS: BASOPHILS % (AUTO) 0.7 %; EOSINOPHILS # (AUTO) 0.3 10^3/uL (0.0-0.7); EOSINOPHILS % (AUTO) 4.6 %; HCT - HEMATOCRIT 37.5 % (42.0-52.0); HGB - HEMOGLOBIN 12.4 g/dL (14.0-18.0); LYMPHOCYTES # (AUTO) 1.8 10^3/uL (1.5-3.5); LYMPHOCYTES % (AUTO) 32.2 %; MEAN CORPUSCULAR HEMOGLOBIN 30.2 pg (27.0-31.0); MEAN CORPUSCULAR HGB CONC 33.1 g/dL (32.0-36.0); MEAN CORPUSCULAR VOLUME 91.4 fL (80.0-94.0); MEAN PLATELET VOLUME 9.5 fL (7.4-11.4); MONOCYTES # (AUTO) 0.4 10^3/uL (0.0-1.0); MONOCYTES % (AUTO) 7.8 %; NEUTROPHILS % (AUTO) 54.7 %; RED BLOOD COUNT 4.11 10^6/uL (4.70-6.10); RED CELL DISTRIBUTION WIDTH 13.3 % (12.0-15.0); UNCORRECTED WHITE BLOOD COUNT 5.5 x10^3/uL; WHITE BLOOD COUNT 5.5 x10^3/uL (4.8-10.8)
[2017-04-04 06:21] LABS: ALBUMIN/GLOBULIN RATIO 1.4 (1.0-2.2); BILIRUBIN,TOTAL 0.6 mg/dL (0.2-1.0); CALCIUM 8.5 mg/dL (8.5-10.3); CREATININE 0.9 mg/dL (0.6-1.2); POTASSIUM 3.6 mmol/L (3.5-5.0); TOTAL PROTEIN 5.3 g/dL (6.7-8.2)
[2017-04-04] MEDS: FAMOTIDINE 20 MG TABLET PO SCH (08:30)
[2017-04-04] MEDS: MULTIVITAMIN TABLET PO SCH (08:31)
[2017-04-04] MEDS: CHOLECALCIFEROL 1,000 UNIT TABLET PO SCH (08:31)
[2017-04-04] MEDS: ASPIRIN 325 MG TABLET PO SCH (08:31)
[2017-04-04] MEDS: ENOXAPARIN 40 MG/0.4 ML SYRINGE SUBQ SCH (08:31)
[2017-04-04] MEDS: POLYETHYLENE GLYCOL 3350 17 GM PACKET PO SCH (08:33)
--- NOTE | 2017-04-04 15:15 | PROVIDER PROGRESS NOTE ---
Objective - Vital Signs/Intake & Output Vital Signs: Vital Signs x48h Temp Pulse Resp BP Pulse Ox 04/04/17 13:00 36.7 C 77 20 154/79 H 100 04/04/17 10:00 36.8 C 70 16 139/72 H 100 04/04/17 07:40 36.8 C 63 19 142/75 H 99 Intake & Output: Intake & Output 04/01/17 04/02/17 04/03/17 04/04/17 23:59 23:59 23:59 23:59 Intake Total 1450 1541 Balance 1450 1541 - Lab Results Fish Bones: 04/04/17 05:08 04/04/17 05:08 Other Labs: Lab Results x24hrs 04/04/17 04/04/17 Range/Units 05:08 05:08 WBC 5.5 (4.8-10.8) x10^3/uL RBC 4.11 L (4.70-6.10) 10^6/uL Hgb 12.4 L (14.0-18.0) g/dL Hct 37.5 L (42.0-52.0) % MCV 91.4 (80.0-94.0) fL MCH 30.2 (27.0-31.0) pg MCHC 33.1 (32.0-36.0) g/dL RDW 13.3 (12.0-15.0) % Plt Count 179 (130-450) 10^3/uL MPV 9.5 (7.4-11.4) fL Neut # 3.0 (1.5-6.6) 10^3/uL Lymph # 1.8 (1.5-3.5) 10^3/uL [place] # 0.4 (0.0-1.0) 10^3/uL Eos # 0.3 (0.0-0.7) 10^3/uL Baso # 0.0 (0.0-0.1) 10^3/uL Absolute Nucleated RBC 0.00 x10^3/uL Nucleated RBC % 0.0 /100WBC Sodium 139 (135-145) mmol/L Potassium 3.6 (3.5-5.0) mmol/L Chloride 107 (101-111) mmol/L Carbon Dioxide 24 (21-32) mmol/L Anion Gap 8.0 (6-13) BUN 14 (6-20) mg/dL Creatinine 0.9 (0.6-1.2) mg/dL Estimated GFR (MDRD) 81 L (>89) Glucose 97 (70-100) mg/dL Calcium 8.5 (8.5-10.3) mg/dL Total Bilirubin 0.6 (0.2-1.0) mg/dL AST 17 (10-42) IU/L ALT 16 (10-60) IU/L Alkaline Phosphatase 49 (42-121) IU/L Total Protein 5.3 L (6.7-8.2) g/dL Albumin 3.1 L (3.2-5.5) g/dL Globulin 2.2 (2.1-4.2) g/dL Albumin/Globulin Ratio 1.4 (1.0-2.2) Assessment/Plan - Problem List (1) Numbness on right side Impression: (1) Numbness on right side Impression: pt report it is much improved but there is still has mild number at right side continue Aspirin and Statin treatment continue neuro check, PT/OT/ST 2.CVA Conclusion/Plan: pt's gait, speech and sensation are much improved continue current medical treatment 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 pt state he can not tolerate Lipitor but he has his own home statin, pt will bring his own Statin pt's symptoms suggest pt may have CVA at left side MRI MRA of brain, and neck ECHO lipid panel PT/OT/ST [place] 325mg daily Lipitor 40 mg daily NPO until evaluated allow SBP until 190 (3) Hyperlipidemia Conclusion/Plan: pt state he can not tolerate Lipid before, and prefer home Crestor use pt's home Crestor will check Lipid panel Lipitor 40 mg daily after pt's insurance improved, [facility] gait imbalance pt's gait is well improved but still require more training. continue current medical treatment continue PT/OT
[2017-04-04] MEDS: SIMVASTATIN 20MG TAB PO SCH (20:23)
[2017-04-05 05:54] LABS: BASOPHILS % (AUTO) 0.8 %; EOSINOPHILS # (AUTO) 0.2 10^3/uL (0.0-0.7); EOSINOPHILS % (AUTO) 5.2 %; HCT - HEMATOCRIT 36.9 % (42.0-52.0); HGB - HEMOGLOBIN 12.4 g/dL (14.0-18.0); LYMPHOCYTES # (AUTO) 1.6 10^3/uL (1.5-3.5); LYMPHOCYTES % (AUTO) 34.8 %; MEAN CORPUSCULAR HEMOGLOBIN 30.4 pg (27.0-31.0); MEAN CORPUSCULAR HGB CONC 33.5 g/dL (32.0-36.0); MEAN CORPUSCULAR VOLUME 90.8 fL (80.0-94.0); MEAN PLATELET VOLUME 9.4 fL (7.4-11.4); MONOCYTES # (AUTO) 0.3 10^3/uL (0.0-1.0); MONOCYTES % (AUTO) 7.4 %; NEUTROPHILS # (AUTO) 2.4 10^3/uL (1.5-6.6); NEUTROPHILS % (AUTO) 51.8 %; RED BLOOD COUNT 4.06 10^6/uL (4.70-6.10); RED CELL DISTRIBUTION WIDTH 13.2 % (12.0-15.0); UNCORRECTED WHITE BLOOD COUNT 4.7 x10^3/uL; WHITE BLOOD COUNT 4.7 x10^3/uL (4.8-10.8)
[2017-04-05] MEDS: SODIUM CHLORIDE FLUSH 0.9% 10 ML SYRINGE IVP SCH ×3 (07:00→20:39)
[2017-04-05] MEDS: FAMOTIDINE 20 MG TABLET PO SCH (09:07)
[2017-04-05] MEDS: ENOXAPARIN 40 MG/0.4 ML SYRINGE SUBQ SCH (09:07)
[2017-04-05] MEDS: ASPIRIN 325 MG TABLET PO SCH (09:08)
[2017-04-05] MEDS: CHOLECALCIFEROL 1,000 UNIT TABLET PO SCH (09:08)
[2017-04-05] MEDS: MULTIVITAMIN TABLET PO SCH (09:08)
[2017-04-05] MEDS: POLYETHYLENE GLYCOL 3350 17 GM PACKET PO SCH (09:11)
--- NOTE | 2017-04-05 18:43 | PROVIDER PROGRESS NOTE ---
Subjective - Prog Note Date Prog Note Date: 04/05/17 - Subjective Pt reports feeling: Improved Subjective: pt report he is doing well, continue recovery from CVA. pt is waiting for insurance prove to [facility] Current Medications - Current Medications Current Medications: Active Medications Acetaminophen (Tylenol) 650 mg PO Q4HR PRN PRN Reason: Pain 1 to 4 Aspirin (Vasquez) 325 mg PO DAILY [facility] Last Admin: 04/05/17 09:08 Dose: 325 mg Cholecalciferol (Vitamin D3) 1,000 unit PO DAILY [facility] Last Admin: 04/05/17 09:08 Dose: 1,000 unit Enoxaparin Sodium (Lovenox) 40 mg SUBQ DAILY [facility] Last Admin: 04/05/17 09:07 Dose: 40 mg Famotidine (Pepcid) 20 mg PO DAILY [facility] Last Admin: 04/05/17 09:07 Dose: 20 mg Multivitamins (Theragran) 1 tab PO DAILY [facility] Last Admin: 04/05/17 09:08 Dose: 1 tab Ondansetron HCl (Zofran Inj) 4 mg IVP Q6HR PRN PRN Reason: Nausea / Vomiting Simvastatin 20mg Tab 1 each PO 2100 [facility] Last Admin: 04/05/17 20:36 Dose: 1 each Polyethylene Glycol (Miralax) 17 gm PO DAILY [facility] Last Admin: 04/05/17 09:11 Dose: Not Given Sodium Chloride (Normal Saline Flush 0.9%) 10 ml IVP PRN PRN PRN Reason: NEEDED PER PROVIDER ORDERS Last Admin: 04/04/17 08:44 Dose: 10 ml Sodium Chloride (Normal Saline Flush 0.9%) 10 ml IVP Q8HR [facility] Last Admin: 04/05/17 20:39 Dose: 10 ml Cholecalciferol (Vitamin D3) [Vitamin D3] 1,000 units PO DAILY 04/01/17 Multivitamin [Theragran] 1 tab PO DAILY 04/01/17 Simvastatin 20 mg PO 2100 04/02/17 Objective - Vital Signs/Intake & Output Reviewed Vital Signs: Yes Vital Signs: Vital Signs x48h Temp Pulse Pulse Pulse Pulse Resp BP 04/05/17 15:27 36.8 C 75 18 04/05/17 13:00 36.7 C 65 16 04/05/17 11:22 68 93 69 143/77 H BP BP BP Pulse Ox 04/05/17 15:27 132/72 H 98 04/05/17 13:00 135/71 H 98 04/05/17 11:22 134/77 H 138/80 H Intake & Output: Intake & Output 04/02/17 04/03/17 04/04/17 04/05/17 23:59 23:59 23:59 23:59 Intake Total 1450 2281 720 Balance 1450 2281 720 - Objective General Appearance: positive: No acute distress, Alert. negative: Lethargic Eyes Bilateral: positive: Normal inspection, PERRL. negative: No lid inflammation, Conjunctivae nml ENT: positive: ENT inspection nml, Pharynx nml, No signs of dehydration. negative: Purulent nasal drainage, Pharyngeal erythema, Oral lesions Neck: positive: Nml inspection, Thyroid nml, No JVD, Trachea midline. negative : Thyromegaly, Lymphadenopathy (R), Lymphadenopathy (L), Stiff neck, Carotid bruit, Swelling/bruising, Tracheal deviation Respiratory: positive: Chest non-tender, No respiratory distress, Breath sounds nml. negative: Wheezes, Rales, Rhonchi Cardiovascular: positive: Regular rate & rhythm, No murmur, No gallop. negative : Irregularly irregular, Extrasystoles, Tachycardia, Bradycardia, Systolic murmur, Diastolic murmur Peripheral Pulses: 2+ Radial (R), 2+ Radial (L), 2+ Dorsalis pedis (R), 2+ Dorsalis pedis (L) Abdomen: positive: Non-tender, No organomegaly, Nml bowel sounds, No distention. negative: Tenderness, Guarding, Rebound Back: positive: Nml inspection. negative: CVA tenderness (R), CVA tenderness (L ) Skin: positive: Color nml, No rash, Warm, Dry. negative: Cyanosis, Diaphoresis , Pallor, Skin rash Extremities: positive: Non-tender, Full ROM, Nml appearance. negative: Calf tenderness, Joint swelling, Skylar's sign/cords Neurologic/Psychiatric: positive: Oriented x3, Mood/affect nml. negative: Sensory loss, Facial droop, Slurred/abnml speech, Depressed mood/affect - Lab Results Fish Bones: 04/05/17 05:22 04/04/17 05:08 Other Labs: Lab Results x24hrs 04/05/17 Range/Units 05:22 WBC 4.7 L (4.8-10.8) x10^3/uL RBC 4.06 L (4.70-6.10) 10^6/uL Hgb 12.4 L (14.0-18.0) g/dL Hct 36.9 L (42.0-52.0) % MCV 90.8 (80.0-94.0) fL MCH 30.4 (27.0-31.0) pg MCHC 33.5 (32.0-36.0) g/dL RDW 13.2 (12.0-15.0) % Plt Count 173 (130-450) 10^3/uL MPV 9.4 (7.4-11.4) fL Neut # 2.4 (1.5-6.6) 10^3/uL Lymph # 1.6 (1.5-3.5) 10^3/uL [place] # 0.3 (0.0-1.0) 10^3/uL Eos # 0.2 (0.0-0.7) 10^3/uL Baso # 0.0 (0.0-0.1) 10^3/uL Absolute Nucleated RBC 0.00 x10^3/uL Nucleated RBC % 0.0 /100WBC Assessment/Plan - Problem List (1) Numbness on right side Impression: Impression: slight to have sensation of numbness continue PT/OT pt report it is much improved but there is still has mild number at right side continue Aspirin and Statin treatment continue neuro check, PT/OT/ST 2.CVA Conclusion/Plan: gait, speech and sensation continue to improve wait for insurance proved continue PT/OT/ST pt's gait, speech and sensation are much improved continue current medical treatment 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 pt state he can not tolerate Lipitor but he has his own home statin, pt will bring his own Statin pt's symptoms suggest pt may have CVA at left side MRI MRA of brain, and neck ECHO lipid panel PT/OT/ST [place] 325mg daily Lipitor 40 mg daily NPO until evaluated allow SBP until 190 (3) Hyperlipidemia Conclusion/Plan: pt state he can not tolerate Lipid before, and prefer home Crestor use pt's home Crestor will check Lipid panel Lipitor 40 mg daily after pt's insurance improved, [facility] gait imbalance much improved continue PT/OT pt's gait is well improved but still require more training. continue current medical treatment continue PT/OT
[2017-04-05] MEDS: SIMVASTATIN 20MG TAB PO SCH (20:36)
[2017-04-06] MEDS: SODIUM CHLORIDE FLUSH 0.9% 10 ML SYRINGE IVP SCH (05:58)
[2017-04-06] MEDS: POLYETHYLENE GLYCOL 3350 17 GM PACKET PO SCH (09:07)
[2017-04-06] MEDS: ENOXAPARIN 40 MG/0.4 ML SYRINGE SUBQ SCH (09:10)
[2017-04-06] MEDS: FAMOTIDINE 20 MG TABLET PO SCH (09:11)
[2017-04-06] MEDS: MULTIVITAMIN TABLET PO SCH (09:11)
[2017-04-06] MEDS: CHOLECALCIFEROL 1,000 UNIT TABLET PO SCH (09:11)
[2017-04-06] MEDS: ASPIRIN 325 MG TABLET PO SCH (09:11)
--- NOTE | 2017-04-06 11:20 | Discharge Plan ---
Discharge Plan Disposition: 02 Transfer Acute Care Hosp Condition: Good Diet: Regular Activity Restrictions: Activity as Tolerated Shower Restrictions: No Driving Restrictions: No Assistance Devices: Walker Weight Bearing: Full Weight Additional Instructions or Follow Up instructions: Results of your head MRI shows a left territory ischemic stroke- which explains your right sided facial numbness. Rest at home and increase activity slowly. Please see your PCP by the end of this week as a follow up to this hospital stay. See neurologist if indicated by PCP. Complete outpatient therapy as ordered. Follow-Up Care: Outpatient Rehab - PT, Outpatient Rehab - OT (outpatient PT/OT.) No Smoking: If you smoke, Please STOP! Call for help. Follow-up with: Emery Israel MD [Primary Care Provider] -
[2017-04-06 15:43] VITALS: BP 143/77
--- NOTE | 2017-04-06 16:40 | DISCHARGE SUMMARY ---
Discharge Summary Admit Date: 04/01/17 Discharge Date: 04/06/17 Discharging Provider: ELIU Crabtree Primary Care Provider: Dr. Emery Israel Code Status: Attempt Resuscitation Condition at Discharge: Good Discharge Disposition: 01 Home, Self Care - DIAGNOSES Admission Diagnoses: CVA (cerebral vascular accident) (I63.9) Numbness on right side (R20.0) Slow rate of speech (R47.89) Hyperlipidemia (E78.5) Unstable gait (R26.81) Discharge Diagnoses with Status of Each Condition: CVA (cerebral vascular accident) (I63.9)- MRI confirms subacute patchy left AWNING INSTALLER territory ischemic stroke. No hemorrhage or mass effect. Moderate generalized cortical atrophy with marked compensatory ventricular enlargement. Moderate midbrain atrophy. No significant white matter disease present per report. Plan : Patient will remain on ASA and statin therapy. He should review his hospitalization with PCP and decide if a formal neurology consult on an outpatient basis is warranted. Numbness on right side (R20.0)- presenting symptoms included mild arm/leg weakness, but primarily right facial numbness and slight AMS per report. An MRI confirmed a subacute left AWNING INSTALLER territory ischemic stroke. Plan: PT/OT ordered for out patient recommendations. 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 Plan: Consider speech therapy if this changes. Stable at the time of discharge. Hyperlipidemia (E78.5)- Lipid panel results showed grossly normal results LDL/ HDL ratio was just 1.4. Plan: continue on statins life long is recommended. Unstable gait (R26.81)-This was an acute problem upon admission likely a consequence of CVA, but has resolved at the time of discharge. Plan: Continue to take precautions in home environment to prevent falls/injury. involved with HOME care plan. - HPI History of Present Illness: HPI per Tay Sanderson, This is a pleasure 81-year-old male with HLP past medical history, otherwise health, who present ER for evaluation of focal neurological deficit. Pt report on last night about 9pm he began to feel numbness on right side upper and lower extremities, and right face. Then pt though it would go away, and went to sleep. In the today morning, pt still felt right side numbness, and with slower speech than usually and mild gait imbalance. Pt's felt it is unusual then bring pt to ER. Pt still present all these symptoms in the ER. Pt denies headache, any injury, chest pain, SOB, fever, chill, abdominal pain, nausea, vomiting, vision changing. CT of head reveals unremarkable. Lab test is unremarkable as well. pt was admitted for CVA evaluation. - HOSPITAL COURSE Hospital Course: Patient noted numbness feeling in his right arm, leg, and on his face that started last evening. His also thought that he was having trouble with thought process. He had onset of the symptoms yesterday evening and last night. He was not sure if the numbness was still there when he first awoke this morning but noted it particularly around 10 AM. There is no weakness noted. He was slightly off balance walking. He denied any headache or head injury. An MRI revealed a subacute CVA at left PCAST. PT/OT evaluated, who suggest rehab as the next step in recovery. There were issues with obtaining a bed, so the patient discharge was delayed. This continued until the time of discharge and as the patient became more improved, he eventually just went home with his with plans to have continued PT/OT and take newly prescribed medications. Both patient and were in agreement, so patient left via private car back to home with family support. - ALLERGIES Allergies/Adverse Reactions: Allergies Allergy/AdvReac Type Severity Reaction Status Date / Time No Known Drug Allergies Allergy Verified 04/01/17 11:38 - MEDICATIONS Home Medications: Ambulatory Orders Medication Instructions Recorded Confirmed Cholecalciferol (Vitamin D3) 1,000 units PO DAILY 04/01/17 04/01/17 [Vitamin D3] Multivitamin [Theragran] 1 tab PO DAILY 04/01/17 04/01/17 Aspirin [Vasquez] 325 mg PO DAILY tablet 04/02/17 Famotidine [Pepcid] 20 mg PO DAILY tablet 04/02/17 Simvastatin 20 mg PO 2100 04/02/17 04/02/17 - PHYSICAL EXAM AT DISCHARGE General Appearance: positive: No acute distress, Alert Eyes Bilateral: positive: Normal inspection, PERRL ENT: positive: ENT inspection nml, Pharynx nml Neck: positive: Nml inspection, Thyroid nml, No JVD, Trachea midline Respiratory: positive: Chest non-tender, No respiratory distress, Breath sounds nml Cardiovascular: positive: Regular rate & rhythm, No murmur, No gallop Peripheral Pulses: positive: 2+ Abdomen: positive: Non-tender, No organomegaly, Nml bowel sounds, No distention Back: positive: Nml inspection Skin: positive: Color nml, No rash, Warm, Dry Extremities: positive: Non-tender, Full ROM, Nml appearance, No pedal edema Neurologic/Psychiatric: positive: Oriented x3, Motor nml, Sensation nml, Mood/ affect nml Reflexes: Bicep (R): 3+, Bicep (L): 3+ - LABS Result Diagrams: 04/05/17 05:22 04/04/17 05:08 - DIAGNOSTIC IMAGING Diagnostic Imaging Results: Final report reviewed Diagnostic Imaging Results Comments: MRI brain 04/01/17: Impressions: 1. Subacute patchy left AWNING INSTALLER territory ischemic stroke. No hemorrhage or mass effect. 2. Moderate generalized cortical atrophy with marked compensatory ventricular enlargement. Moderate midbrain atrophy. No significant white matter disease present. Head CT 04/01/17: IMPRESSION: No CT evidence for acute intracranial abnormality. Head CT angio 04/01/17: IMPRESSION: Proximal left AWNING INSTALLER P2 segment occlusion. No other evidence for proximal intracranial large artery flow-limiting stenosis or occlusion. Neck CT angio 04/01/17: IMPRESSION: No acute abnormality or significant stenosis of the cervical vertebral carotid arteries. - FOLLOW UP Follow Up: Results of your head MRI shows a left territory ischemic stroke- which explains your right sided facial numbness. Rest at home and increase activity slowly. Please see your PCP by the end of this week as a follow up to this hospital stay. See neurologist if indicated by PCP. Complete outpatient therapy as ordered. - TIME SPENT Time Spent in Discharge (Minutes): 60
== END 2017-04-06 17:12 | disposition home or self-care (01) | DRG 65 ==
LOC: ED 11:23 → OBS 14:32 → OBSVTOIN 04-03 10:25 → MS2 04-03 11:40
PROVIDERS: ADMIT Nurse Practitioner Gerontology; ATTEND Nurse Practitioner Gerontology
DX: I63.532 Cerebral infarction due to unspecified occlusion or stenosis of left posterior cerebral artery (principal); G81.91 Hemiplegia, unspecified affecting right dominant side; R20.0 Anesthesia of skin; E78.5 Hyperlipidemia, unspecified; R47.01 Aphasia; R29.703 NIHSS score 3; Z79.82 Long term (current) use of aspirin; Z79.899 Other long term (current) drug therapy; Z85.828 Personal history of other malignant neoplasm of skin
CPT/HCPCS: 36415; 70450; 70496; 70498; 70551; 80053; 80061; 81001; 81003; 83690; 83735; 85025; 87086; 93005; 93306; 96360; 96361; 96372; 99284; 99285

== ENCOUNTER 2017-04-13 08:10 | Outpatient (CLI) | payer MEDICARE | END 2017-04-13 08:11 | disposition home or self-care (01) | LOC: LAB.R 08:10 | PROVIDERS: ATTEND Internal Medicine | DX: E78.5 Hyperlipidemia, unspecified (principal); Z79.899 Other long term (current) drug therapy | CPT/HCPCS: 82550 ==

== ENCOUNTER 2017-12-23 09:10 | Outpatient (CLI) | payer MEDICARE ==
[2017-12-23 13:42] LABS: BASOPHILS # (AUTO) 0.1 10^3/uL (0.0-0.1); BASOPHILS % (AUTO) 2.5 %; EOSINOPHILS # (AUTO) 0.1 10^3/uL (0.0-0.7); EOSINOPHILS % (AUTO) 2.4 %; HGB - HEMOGLOBIN 13.7 g/dL (14.0-18.0); LYMPHOCYTES # (AUTO) 1.1 10^3/uL (1.5-3.5); LYMPHOCYTES % (AUTO) 26.3 %; MEAN CORPUSCULAR HEMOGLOBIN 30.6 pg (27.0-31.0); MEAN CORPUSCULAR HGB CONC 33.4 g/dL (32.0-36.0); MEAN CORPUSCULAR VOLUME 91.6 fL (80.0-94.0); MEAN PLATELET VOLUME 9.4 fL (7.4-11.4); MONOCYTES # (AUTO) 0.2 10^3/uL (0.0-1.0); MONOCYTES % (AUTO) 5.5 %; NEUTROPHILS # (AUTO) 2.7 10^3/uL (1.5-6.6); NEUTROPHILS % (AUTO) 63.3 %; PLT - PLATELET COUNT 193 10^3/uL (130-450); RED BLOOD COUNT 4.47 10^6/uL (4.70-6.10); RED CELL DISTRIBUTION WIDTH 13.6 % (12.0-15.0); WHITE BLOOD COUNT 4.3 x10^3/uL (4.8-10.8)
[2017-12-23 13:58] LABS: ALBUMIN 3.9 g/dL (3.2-5.5); ALBUMIN/GLOBULIN RATIO 1.6 (1.0-2.2); ALKALINE PHOSPHATASE 59 IU/L (42-121); ALT ALANINE AMINOTRANSFERASE 24 IU/L (10-60); AST ASPARTATE AMINOTRANSFERASE 24 IU/L (10-42); BILIRUBIN,TOTAL 0.9 mg/dL (0.2-1.0); BUN - BLOOD UREA NITROGEN 26 mg/dL (6-20); CALCIUM 9.1 mg/dL (8.5-10.3); CARBON DIOXIDE - CO2 26 mmol/L (21-32); CHLORIDE 108 mmol/L (101-111); CHOL/HDL RATIO 2.1 (<5.0); CHOLESTEROL 200 mg/dL; GFR - MDRD 72 (>89); GLUCOSE 93 mg/dL (70-100); HDL CHOLESTEROL 94 mg/dL; LDL CHOLESTEROL,CALCULATED 96 mg/dL; SODIUM 141 mmol/L (135-145); TOTAL PROTEIN 6.3 g/dL (6.7-8.2); VLDL CHOLESTEROL 10 mg/dL
== END 2017-12-23 09:11 ==
LOC: LAB.R 09:10
PROVIDERS: ATTEND Internal Medicine
DX: Z12.5 Encounter for screening for malignant neoplasm of prostate (principal); E78.5 Hyperlipidemia, unspecified
CPT/HCPCS: 80053; 80061; 84443; 85025; G0103; 83721; 84153

== ENCOUNTER 2018-11-24 09:11 | Outpatient (CLI) | payer MEDICARE ==
[2018-11-24 09:45] LABS: ALBUMIN 4.2 g/dL (3.2-5.5); ALBUMIN/GLOBULIN RATIO 1.6 (1.0-2.2); ALKALINE PHOSPHATASE 77 IU/L (42-121); ALT ALANINE AMINOTRANSFERASE 78 IU/L (10-60); AST ASPARTATE AMINOTRANSFERASE 51 IU/L (10-42); BUN - BLOOD UREA NITROGEN 20 mg/dL (6-20); CALCIUM 9.3 mg/dL (8.5-10.3); CARBON DIOXIDE - CO2 26 mmol/L (21-32); CHLORIDE 105 mmol/L (101-111); CHOL/HDL RATIO 2.3 (<5.0); CHOLESTEROL 194 mg/dL; CREATININE 0.9 mg/dL (0.6-1.2); GFR - MDRD 81 (>89); GLUCOSE 96 mg/dL (70-100); HDL CHOLESTEROL 83 mg/dL; LDL CHOLESTEROL,CALCULATED 101 mg/dL; LDL/HDL RATIO 1.2 (<3.6); SODIUM 142 mmol/L (135-145); TOTAL PROTEIN 6.8 g/dL (6.7-8.2); VLDL CHOLESTEROL 10 mg/dL
[2018-11-24 10:38] LABS: BASOPHILS % (AUTO) 0.7 %; EOSINOPHILS # (AUTO) 0.2 10^3/uL (0.0-0.7); EOSINOPHILS % (AUTO) 4.2 %; HGB - HEMOGLOBIN 14.2 g/dL (14.0-18.0); LYMPHOCYTES # (AUTO) 1.4 10^3/uL (1.5-3.5); LYMPHOCYTES % (AUTO) 31.2 %; MEAN CORPUSCULAR HEMOGLOBIN 30.5 pg (27.0-31.0); MEAN CORPUSCULAR VOLUME 95.3 fL (80.0-94.0); MEAN PLATELET VOLUME 11.4 fL (7.4-11.4); MONOCYTES # (AUTO) 0.3 10^3/uL (0.0-1.0); NEUTROPHILS # (AUTO) 2.6 10^3/uL (1.5-6.6); NEUTROPHILS % (AUTO) 57.7 %; PLT - PLATELET COUNT 199 10^3/uL (130-450); RED BLOOD COUNT 4.66 10^6/uL (4.70-6.10); RED CELL DISTRIBUTION WIDTH 13.4 % (12.0-15.0); WHITE BLOOD COUNT 4.5 x10^3/uL (4.8-10.8)
== END 2018-11-24 09:12 | disposition home or self-care (01) ==
LOC: LAB 09:11
PROVIDERS: ATTEND Family Medicine
DX: I69.951 Hemiplegia and hemiparesis following unspecified cerebrovascular disease affecting right dominant side (principal); C44.91 Basal cell carcinoma of skin, unspecified; E78.5 Hyperlipidemia, unspecified
CPT/HCPCS: 36415; 80053; 80061; 83721; 84443; 85025

== ENCOUNTER 2020-01-10 08:00 | Outpatient (CLI) | payer MEDICARE ==
[2020-01-10 11:45] LABS: BASOPHILS % (AUTO) 0.6 %; EOSINOPHILS # (AUTO) 0.1 10^3/uL (0.0-0.7); EOSINOPHILS % (AUTO) 1.5 %; HGB - HEMOGLOBIN 14.2 g/dL (14.0-18.0); LYMPHOCYTES # (AUTO) 1.5 10^3/uL (1.5-3.5); MEAN CORPUSCULAR HEMOGLOBIN 31.3 pg (27.0-31.0); MEAN CORPUSCULAR HGB CONC 32.1 g/dL (32.0-36.0); MEAN CORPUSCULAR VOLUME 97.6 fL (80.0-94.0); MONOCYTES # (AUTO) 0.4 10^3/uL (0.0-1.0); MONOCYTES % (AUTO) 7.4 %; NEUTROPHILS # (AUTO) 3.4 10^3/uL (1.5-6.6); NEUTROPHILS % (AUTO) 63.1 %; PLT - PLATELET COUNT 232 10^3/uL (130-450); RED BLOOD COUNT 4.54 10^6/uL (4.70-6.10); WHITE BLOOD COUNT 5.4 x10^3/uL (4.8-10.8)
[2020-01-10 12:04] LABS: ALBUMIN 3.9 g/dL (3.2-5.5); ALBUMIN/GLOBULIN RATIO 1.6 (1.0-2.2); ALKALINE PHOSPHATASE 65 IU/L (42-121); ALT ALANINE AMINOTRANSFERASE 21 IU/L (10-60); AST ASPARTATE AMINOTRANSFERASE 20 IU/L (10-42); BILIRUBIN,TOTAL 0.8 mg/dL (0.2-1.0); BUN - BLOOD UREA NITROGEN 26 mg/dL (6-20); CALCIUM 9.3 mg/dL (8.5-10.3); CARBON DIOXIDE - CO2 29 mmol/L (21-32); CHLORIDE 104 mmol/L (101-111); CHOL/HDL RATIO 2.9 (<5.0); CHOLESTEROL 271 mg/dL; GLUCOSE 104 mg/dL (70-100); HDL CHOLESTEROL 92 mg/dL; SODIUM 139 mmol/L (135-145); TOTAL PROTEIN 6.3 g/dL (6.7-8.2)
== END 2020-01-10 23:59 | disposition home or self-care (01) ==
LOC: LAB.WCP 08:00
PROVIDERS: ATTEND Family Medicine
DX: I69.951 Hemiplegia and hemiparesis following unspecified cerebrovascular disease affecting right dominant side (principal)
CPT/HCPCS: 36415; 80053; 80061; 83721; 84443; 85025

== ENCOUNTER 2020-03-08 14:06 | Outpatient (CLI) | payer MEDICARE | END 2020-03-08 14:07 | disposition home or self-care (01) | LOC: LAB 14:06 | PROVIDERS: ATTEND Surgery | DX: Z01.812 Encounter for preprocedural laboratory examination (principal); K40.90 Unilateral inguinal hernia, without obstruction or gangrene, not specified as recurrent; Z20.828 Contact with and (suspected) exposure to other viral communicable diseases ==

== ENCOUNTER 2020-03-12 09:31 | Day surgery (SDC) | payer MEDICARE ==
[~2020-03-12 09:31] MED LIST: CEFAZOLIN SODIUM IN 0.9 % NACL 2 GM/100 ML BAG IV ONE
[2020-03-12] MEDS ORDERED: LIDOCAINE-MPF 2% 5 ML VIAL IM ONE (09:32)
[2020-03-12] MEDS ORDERED: fentaNYL 100 MCG/2 ML VIAL IVP ONE (09:32)
[2020-03-12] MEDS ORDERED: PROPOFOL 200 MG/20 ML VIAL IVP ONE (09:32)
[2020-03-12] MEDS ORDERED: MIDAZOLAM 2 MG/2 ML VIAL IVP ONE (09:32)
[2020-03-12] MEDS ORDERED: LACTATED RINGERS 1,000 ML IV ONE ×2 (09:35→12:15)
[2020-03-12] MEDS ORDERED: BUPIVACAINE 0.25% PF 30 ML VIAL SUBQ ONE ×3 (09:38→12:10)
--- NOTE | 2020-03-12 09:51 | ANESTHESIA ---
Pre-Anesthesia VS, & Labs - Diagnosis left inguinal hernia - Procedure Open Inguinal Hernia Repair with mesh Vital Signs: Temp Pulse Resp BP Pulse Ox 36.2 C L 72 16 153/90 H 16 L 03/12/20 09:39 03/12/20 09:39 03/12/20 09:39 03/12/20 09:39 03/12/20 09:39 Height: 5 ft 7 in Weight (kg): 69 kg Body Mass Index: 23.8 BMI Classification: Healthy weight - NPO >8 hours - Lab Results Lab results reviewed: Yes Home Medications and Allergies Home Medications: Ambulatory Orders Aspirin [Aspirin EC] 81 mg PO DAILY 03/08/20 Rosuvastatin Calcium 10 mg PO QPM 03/08/20 Cholecalciferol (Vitamin D3) [Vitamin D3] 1,000 units PO DAILY 04/01/17 Multivitamin [Theragran] 1 tab PO DAILY 04/01/17 Aspirin [Aspirin EC] 81 mg PO DAILY 03/08/20 Rosuvastatin Calcium 10 mg PO QPM 03/08/20 Allergies/Adverse Reactions: Allergies Allergy/AdvReac Type Severity Reaction Status Date / Time No Known Drug Allergies Allergy Verified 04/01/17 11:38 Anes History & Medical History - Anesthetic History Anesthesia Complications: reports: No previous complications Family history of Anesthesia Complications: Denies Family history of Malignant Hyperthermia: Denies - Medical History Cardiovascular: reports: High cholesterol Pulmonary: reports: None Gastrointestinal: reports: None Urinary: reports: None Neuro: reports: CVA (2017, has some residual neuropathy right hand) Musculoskeletal: reports: None Endocrine/Autoimmune: reports: None Blood Disorders: reports: None Skin: reports: Other Smoking Status: Never smoker - Surgical History Dermatologic: Skin cancer surgery Exam General: Alert, Oriented x3, Cooperative, No acute distress Mouth Openin Fingerbreadth Neck Mobility: Normal Mallampati classification: II Respiratory: Lungs clear, Normal breath sounds, No respiratory distress, No accessory muscle use Cardiovascular: Regular rate, Normal S1, Normal S2, No murmurs Plan Anesthesia Type: MAC Consent for Procedure(s) Verified and Reviewed: Yes Code Status: Attempt Resuscitation ASA classification: 2-Mild systemic disease Is this case an emergency?: No
[2020-03-12] MEDS ORDERED: BUPIVACAINE 0.25% PF 30 ML VIAL ONE (10:04)
[2020-03-12] MEDS ORDERED: fentaNYL 100 MCG/2 ML VIAL IVP PRN (10:18)
[2020-03-12] MEDS ORDERED: ONDANSETRON 4 MG/2 ML VIAL IVP PRN (10:18)
[2020-03-12] MEDS ORDERED: METOCLOPRAMIDE 10 MG/2 ML VIAL IVP PRN (10:18)
[2020-03-12] MEDS ORDERED: HYDROmorphone 0.5 MG/0.5 ML SYRINGE IVP PRN (10:18)
[2020-03-12] MEDS ORDERED: ATROPINE ABBOJECT 1 MG/10 ML SYRINGE IVP PRN (10:18)
[2020-03-12] MEDS ORDERED: ePHEDrine 50 MG/ML VIAL IVP PRN (10:18)
[2020-03-12] MEDS ORDERED: NALOXONE 0.4 MG/ML VIAL IVP PRN (10:18)
[2020-03-12] MEDS ORDERED: MORPHINE 2 MG/ML CARPUJECT IVP PRN (10:18)
[2020-03-12] MEDS ORDERED: LACTATED RINGERS 1,000 ML IV SCH (11:00)
[2020-03-12] MEDS ORDERED: LIDOCAINE 1%-EPI 1:100000 30 ML MDV SUBQ ONE ×2 (11:14→12:10)
[2020-03-12] MEDS ORDERED: LIDOCAINE-MPF 1% 30 ML VIAL ONE (11:19)
[2020-03-12] MEDS ORDERED: HYDROcod/ACETAM 5/325 MG TABLET PO PRN (12:27)
--- NOTE | 2020-03-12 12:27 | OPERATIVE REPORT ---
Operative Report - General Procedure Date: 03/12/20 Pre-Op Diagnosis: left inguinal hernia Procedure Performed: open left inguinal hernia Post Op Diagnosis: left inguinal hernia - Procedure Note Primary Surgeon: cherelle glass Anesthesia Technique: Local, MAC Estimated Blood Loss (mL): 0 Findings: large direct Complications: none
--- NOTE | 2020-03-12 13:11 | ANESTHESIA POST OP EVALUATION ---
Anesthesia Post Eval - Post Anesthesia Eval Vitals: Last Vital Signs Temp 36.3 C L 03/12/20 13:02 Pulse 57 L 03/12/20 13:02 Resp 16 03/12/20 13:02 BP 132/75 H 03/12/20 13:02 Pulse Ox 100 03/12/20 13:02 CV Function Including HR & BP: positive: Stable Pain Control: positive: Satisfactory Nausea & Vomiting: positive: Negative Mental Status: positive: Baseline Respiratory Status: Airway Patent Hydration Status: Satisfactory Anesthesia Complications: positive: None
[2020-03-12 14:23] VITALS: BP 124/80
--- NOTE | 2020-03-12 18:40 | OPERATIVE REPORT ---
DATE OF SERVICE: 03/12/2020 Physician: Inder Aj MD PREOPERATIVE DIAGNOSIS: Left inguinal hernia. POSTOPERATIVE DIAGNOSIS: Left inguinal hernia, very large direct. PROCEDURE PERFORMED: Open left inguinal hernia repair with mesh, Bubba. SURGEON: Inder Aj MD LOCOMOTIVE LUBRICATING SYSTEMS CLERK: None. ANESTHESIA: Monitored anesthesia care, IV sedation, local anesthesia. COMPLICATIONS: None. SPECIMEN: Ilioinguinal nerve was removed. However, not sent for pathology. ESTIMATED BLOOD LOSS: None. COMPLICATIONS: None. DRAINS: None. PROSTHETIC: Polypropylene mesh. FINDINGS: His ilioinguinal nerve was very fine and branched. It was removed due to this. He had a large direct hernia with a bulge approximately 5 x 5 cm. INDICATIONS FOR PROCEDURE: Patient is an active 84-year-old gentleman with a symptomatic left inguinal hernia. He presents for open repair with mesh. Risks discussed, alternatives discussed, all questions answered, and consent obtained. DETAILS OF PROCEDURE: Patient was properly identified and brought to the operating room and placed in supine position. Monitored anesthesia care was given as well as IV sedation. He was prepped and draped in a sterile fashion and given preoperative antibiotics. Local anesthetic was given throughout the procedure. A 5 cm incision was made in the direction of Tito's lines just cephalad of the pubic tubercle. Dissection proceeded with cutting current. The superficial epigastric vein was identified, clamped, divided, and tied with 3-0 Vicryl. Dissection proceeded down to the aponeurosis. The aponeurosis was opened in the direction of its fibers extending to the external ring. He had a very fine ilioinguinal nerve, which branched and ran in a medial direction. He had a very large underlying direct defect. I thought it best to excise the nerve back to musculature. The cord structures were mobilized and brought up. The direct bulging tissue was mobilized away from the surrounding tissue. The floor was then repaired with a 2-0 silk pursestring suture reducing the direct defect. There was no indirect defect. A polypropylene mesh was then cut to size and with tails. It was secured with multiple interrupted 0 Ti-Cron sutures. Sutures were placed over the pubic tubercle along the shelving border of Poupart's ligament and medially along the musculature or fascia of the internal oblique. The medial tail of the mesh was secured to the shelving border of Poupart's ligament with 3 interrupted 0 Ti-Cron sutures. Additional suture was placed in the crotch of the mesh, recreating the internal ring of appropriate size. The aponeurosis was closed with a running 2-0 Vicryl suture. Milton's was closed with interrupted 3-0 Vicryl suture. Skin was closed with a running 4-0 Monocryl subcuticular suture. Dressing was applied. He tolerated the procedure very well. TD: 03/12/2020 12:57 VIANNEY
== END 2020-03-12 09:32 | disposition home or self-care (01) ==
LOC: SDS 09:31
PROVIDERS: ATTEND Surgery
PROC: 0YU50JZ Supplement Right Inguinal Region with Synthetic Substitute, Open Approach (ICD-10-PCS; principal; 2020-03-12 10:30)
DX: K40.90 Unilateral inguinal hernia, without obstruction or gangrene, not specified as recurrent (principal); I69.931 Monoplegia of upper limb following unspecified cerebrovascular disease affecting right dominant side; E78.5 Hyperlipidemia, unspecified; Z79.82 Long term (current) use of aspirin; Z79.899 Other long term (current) drug therapy
CPT/HCPCS: 49505; C1781; J0690; J7120

== ENCOUNTER 2021-01-15 08:33 | Outpatient (CLI) | payer MEDICARE ==
[2021-01-15 12:27] LABS: BASOPHILS % (AUTO) 0.7 %; EOSINOPHILS # (AUTO) 0.1 10^3/uL (0.0-0.7); EOSINOPHILS % (AUTO) 2.5 %; HGB - HEMOGLOBIN 14.2 g/dL (14.0-18.0); LYMPHOCYTES # (AUTO) 1.4 10^3/uL (1.5-3.5); MEAN CORPUSCULAR HEMOGLOBIN 30.4 pg (27.0-31.0); MEAN CORPUSCULAR HGB CONC 31.6 g/dL (32.0-36.0); MEAN CORPUSCULAR VOLUME 96.4 fL (80.0-94.0); MEAN PLATELET VOLUME 11.8 fL (7.4-11.4); MONOCYTES # (AUTO) 0.3 10^3/uL (0.0-1.0); MONOCYTES % (AUTO) 7.4 %; NEUTROPHILS # (AUTO) 2.6 10^3/uL (1.5-6.6); NEUTROPHILS % (AUTO) 57.4 %; PLT - PLATELET COUNT 204 10^3/uL (130-450); RED BLOOD COUNT 4.67 10^6/uL (4.70-6.10); RED CELL DISTRIBUTION WIDTH 13.1 % (12.0-15.0); WHITE BLOOD COUNT 4.4 x10^3/uL (4.8-10.8)
[2021-01-15 12:34] LABS: ALBUMIN 4.1 g/dL (3.2-5.5); ALBUMIN/GLOBULIN RATIO 1.5 (1.0-2.2); ALKALINE PHOSPHATASE 64 IU/L (42-121); ALT ALANINE AMINOTRANSFERASE 22 IU/L (10-60); AST ASPARTATE AMINOTRANSFERASE 22 IU/L (10-42); BILIRUBIN,TOTAL 0.7 mg/dL (0.2-1.0); BUN - BLOOD UREA NITROGEN 24 mg/dL (6-20); CALCIUM 9.4 mg/dL (8.5-10.3); CARBON DIOXIDE - CO2 27 mmol/L (21-32); CHLORIDE 105 mmol/L (101-111); CHOL/HDL RATIO 2.3 (<5.0); CHOLESTEROL 200 mg/dL; GFR - MDRD 71 (>89); GLUCOSE 95 mg/dL (70-100); HDL CHOLESTEROL 88 mg/dL; POTASSIUM 4.6 mmol/L (3.5-5.0); SODIUM 139 mmol/L (135-145); TOTAL PROTEIN 6.9 g/dL (6.7-8.2); TRIGLYCERIDES 38 mg/dL
[2021-01-15 12:39] LABS: THYROID STIMULATING HORMONE 1.36 uIU/mL (0.34-5.60)
== END 2021-01-15 23:59 | disposition home or self-care (01) ==
LOC: LAB.WCP 08:33
PROVIDERS: ATTEND Family Medicine
DX: Z00.00 Encounter for general adult medical examination without abnormal findings (principal); E78.5 Hyperlipidemia, unspecified; I69.30 Unspecified sequelae of cerebral infarction
CPT/HCPCS: 36415; 80053; 80061; 83721; 84443; 85025

== ENCOUNTER 2021-02-10 07:49 | Outpatient (CLI) | payer MEDICARE ==
[2021-02-10] MEDS ORDERED: GADOBUTROL 7.5 MMOL/7.5 ML VIAL ONE (08:01)
--- NOTE | 2021-02-10 09:48 | MRI Report ---
PROCEDURE: Brain W/WO INDICATIONS: MEMORY LOSS,LATE EFFECT OF CARDIOEMBOLIC STROKE CONTRAST: IV CONTRAST: Gadavist ml: 7 TECHNIQUE: Noncontrast axial T1 spin echo, axial T2 fast spin echo, sagittal and axial FLAIR, coronal T2 fast sp in echo, axial gradient echo, axial diffusion and ADC through the brain. After the administration of contrast, axial and coronal T1 spin echo with fat saturation through the brain. COMPARISON: 04/01/2027 FINDINGS: Image quality: Excellent. CSF spaces: Basal cisterns are patent. No extra-axial fluid collections. Ventricles are normal in size and shape. Brain: No midline shift. No intracranial bleeds or masses. Encephalomalacia in the left MUD CLEANER OPERATOR territo ry corresponding with the area of infarction on prior MRI is seen. No abnormal intracranial enhancem ent. There is cerebral volume loss for age with ex vacuo dilatation of the ventricles. Minimal small vessel ischemic changes are noted. The brainstem appears normal. Diffusion-weighted images demonstr ate no acute ischemic insults. No chronic ischemic insults. Normal intravascular flow voids are pre sent. Skull and face: Calvarial marrow is normal in signal. Orbits appear normal. Sinuses: Sinuses and mastoids appear clear. IMPRESSION: 1. Encephalomalacia in the left MUD CLEANER OPERATOR territory consistent with a remote infarct. 2. Moderate generalized cortical atrophy with compensatory ventricular enlargement. 3. No acute intracranial abnormality. Reviewed by: Delgado Pratt on 02/10/2021 9:46 AM PDT Approved by: Delgado Pratt on 02/10/2021 9:46 AM PDT Station ID: [id number]
[2021-02-10] MEDS ORDERED: GADOBUTROL 7.5 MMOL/7.5 ML VIAL IVP ONE (16:50)
== END 2021-02-10 07:50 | disposition home or self-care (01) ==
LOC: DI 07:49
PROVIDERS: ATTEND Family Medicine
DX: R41.3 Other amnesia (principal); I69.30 Unspecified sequelae of cerebral infarction
CPT/HCPCS: 70553; A9585

== ENCOUNTER 2021-03-06 08:10 | Outpatient (CLI) | payer MEDICARE ==
--- NOTE | 2021-03-06 08:27 | CARDIAC PROCEDURE NOTE ---
Stress Test Report Service Date: 03/06/21 Service Time: 08:00 Ordering Provider: Donnell Simpson MD Indication for Test: Assess exertional dyspnea. Significant Medical History: Mr. Capone has a history of treated hyperlipidemia and 4 years ago had a mild stroke that resulted in persistent right-sided numbness, though not weakness, he says. He remains active on a daily basis, doing yard work and gardening. His view is that he is "slowing down" and he gives examples of this occurring both during physical activities and while driving. He does not know why he slows down and to my interview he denies exertional shortness of breath, chest discomfort, palpitations, lightheadedness and extremity edema. Cardiac Risk Factors: History of treated hyperlipidemia; he denies hypertension, diabetes, ever smoking and any known family history of heart disease. Type of Stress Test: ETT with Echocardiography Procedure: -Exercise Treadmill Test- After signing informed consent, the patient underwent resting echo imaging. He then performed treadmill exercise using a Modified Reginaldo protocol. The patient exercised for 8 minutes 48 seconds and achieved a peak heart rate of 125 (91 percent predicted maximum heart rate for age), and an estimated workload of 4.6 METS. The test was terminated due to fatigue after having achieved target heart rate. Resting heart rate: 77 Peak heart rate: 125 Normal response to exercise. Resting BP: 143/85 Peak BP: 174/85 Normal BP response to exercise. Rhythm during exercise: Sinus rhythm throughout. Symptoms: He denied specific symptoms, only endorsed fatigue. 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 EKG at peak stress showed no ischemia by EKG criteria. In Recovery heart rate returned to baseline normally; BP gradually decreased towards baseline level. Echo imaging performed at rest and with stress will be reported separately. IBoris MD, was present throughout this treadmill stress test and supervised it in its entirety. Summary: 1) Exercise tolerance probably about average for age as evidenced by attainment of 4.6 METS; no ARMOND available for modified Reginaldo protocol. 2) Abnormal resting EKG, showing bifascicular block, no evidence of prior infarct. 3) Adequate level of exercise was achieved on this treadmill stress test. 4) Normal BP response to exercise. 5) No ischemic changes by EKG criteria were seen at peak stress. 6) Echo image interpretation reveals normal resting left ventricular systolic function with mild concentric hypertrophy, with appropriate augmentation of all segments with stress, indicative of no evidence of prior infarct or inducible ischemia. See separate report for more detail. CONCLUSIONS: 1) Low risk treadmill stress echocardiogram. 2) Note that a diagnostic echocardiogram in 2017 showed left ventricular hypertrophy with evidence of diastolic dysfunction, but there was no evidence of abnormal right sided filling pressure on screening for the current stress echocardiogram.
== END 2021-03-06 08:11 | disposition home or self-care (01) ==
LOC: DI 08:10
PROVIDERS: ATTEND Family Medicine
DX: R06.09 Other forms of dyspnea (principal); Z86.39 Personal history of other endocrine, nutritional and metabolic disease; R94.31 Abnormal electrocardiogram [ECG] [EKG]
CPT/HCPCS: 93350

== ENCOUNTER 2021-12-10 07:59 | Outpatient (CLI) | payer MEDICARE ==
[2021-12-10 08:20] LABS: BASOPHILS % (AUTO) 0.8 %; EOSINOPHILS # (AUTO) 0.3 10^3/uL (0.0-0.7); EOSINOPHILS % (AUTO) 5.8 %; HCT - HEMATOCRIT 42.9 % (42.0-52.0); HGB - HEMOGLOBIN 13.9 g/dL (14.0-18.0); LYMPHOCYTES % (AUTO) 37.7 %; MEAN CORPUSCULAR HEMOGLOBIN 30.5 pg (27.0-31.0); MEAN CORPUSCULAR HGB CONC 32.4 g/dL (32.0-36.0); MEAN CORPUSCULAR VOLUME 94.1 fL (80.0-94.0); MEAN PLATELET VOLUME 10.8 fL (7.4-11.4); MONOCYTES # (AUTO) 0.4 10^3/uL (0.0-1.0); MONOCYTES % (AUTO) 6.6 %; NEUTROPHILS # (AUTO) 2.6 10^3/uL (1.5-6.6); NEUTROPHILS % (AUTO) 48.9 %; PLT - PLATELET COUNT 183 10^3/uL (130-450); RED BLOOD COUNT 4.56 10^6/uL (4.70-6.10); RED CELL DISTRIBUTION WIDTH 13.1 % (12.0-15.0); WHITE BLOOD COUNT 5.3 x10^3/uL (4.8-10.8)
[2021-12-10 08:42] LABS: ALBUMIN/GLOBULIN RATIO 1.6 (1.0-2.2); ALKALINE PHOSPHATASE 67 IU/L (42-121); ALT ALANINE AMINOTRANSFERASE 27 IU/L (10-60); AST ASPARTATE AMINOTRANSFERASE 26 IU/L (10-42); BILIRUBIN,TOTAL 0.8 mg/dL (0.2-1.0); BUN - BLOOD UREA NITROGEN 26 mg/dL (6-20); CALCIUM 9.4 mg/dL (8.5-10.3); CARBON DIOXIDE - CO2 28 mmol/L (21-32); CHLORIDE 106 mmol/L (101-111); CHOL/HDL RATIO 2.1 (<5.0); CHOLESTEROL 195 mg/dL; GFR - MDRD 71 (>89); GLUCOSE 101 mg/dL (70-100); HDL CHOLESTEROL 92 mg/dL; LDL CHOLESTEROL,CALCULATED 95 mg/dL; POTASSIUM 4.4 mmol/L (3.5-5.0); SODIUM 141 mmol/L (135-145); TOTAL PROTEIN 6.5 g/dL (6.7-8.2); TRIGLYCERIDES 41 mg/dL; VLDL CHOLESTEROL 8 mg/dL
[2021-12-10 08:52] LABS: THYROID STIMULATING HORMONE 1.34 uIU/mL (0.34-5.60)
== END 2021-12-10 08:00 | disposition home or self-care (01) ==
LOC: LAB 07:59
PROVIDERS: ATTEND Family Medicine
DX: F03.90 Unspecified dementia, unspecified severity, without behavioral disturbance, psychotic disturbance, mood disturbance, and anxiety (principal); I69.951 Hemiplegia and hemiparesis following unspecified cerebrovascular disease affecting right dominant side; E78.5 Hyperlipidemia, unspecified
CPT/HCPCS: 36415; 80053; 80061; 83721; 84443; 85025